=== PATIENT | female | born 1930 | race Caucasian/White ===

== ENCOUNTER 2016-06-15 13:15 | Inpatient (IN) ==
--- NOTE | 2016-06-15 13:54 | Emergency Department Note ---
START Narrative - START START: For this encounter, I have reviewed the resident, SYSTEMS SUPPORT ENGINEER, or PA documentation, treatment plan, and medical decision making; and I have had face to face time with this patient. 85 yo female with history of metastasis presents with concerns of ARF and pain. Pt was seen by onchologist and was noted to have hypotension and bilateral lower extremity edema. pt has history of metastasis which has caused chronic BLE edema. She states she had a history of hypotension with systolic in the 80s to low 100s over the past few months. Patient has an ECG which shows A. fib with RVR without evidence of STEMI. Patient states her lower extremities are edematous but they are significantly improved what they have been in the past. Laboratory testing today shows increasing elevation of her creatinine over the past few months. Patient given Lopressor in the emergency department for A. fib with RVR which improved the heart rate. Patient's blood pressure was tenuous but remained stable. Patient's CODE STATUS was confirmed at DNR [facility]. Admitted to the hospital for evaluation of her renal function, her hypotension and further evaluation of her cancer.
[2016-06-15] MEDS ORDERED: 0.9 % Sodium Chloride 1,000 ML IVC ONE (13:58)
--- NOTE | 2016-06-15 14:20 | Emergency Department Note ---
Disposition Clinical Impression: Metastatic cancer Atrial fibrillation Qualifiers: Atrial fibrillation type: unspecified Qualified Code(s): I48.91 - Unspecified atrial fibrillation Sepsis Qualifiers: Sepsis type: sepsis due to unspecified organism Qualified Code(s): A41.9 - Sepsis, unspecified organism Disposition: Admitted As Inpatient Condition: Serious Time of Disposition: 14:00 General Adult HPI - General Chief complaint: ED General Medical Stated complaint: Low B/P, BLE edema Time Seen by Provider: 06/15/16 13:22 Source: patient, EMS Limitations: no limitations Nursing Notes Reviewed: Yes Vital Signs Reviewed: Yes - History of Present Illness HPI Narrative: Patient is an 85-year-old female presenting to [facility] ED with a chief complaint of hypotension and metastatic cancer. Patient was sent over by Rutledge Elham. She was recently treated with radiation therapy for her metastatic lymphoma. 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 Patient had been admitted to a swing bed at [facility] but family wanted to continue aggressive treatment for her current condition. She was transferred over here for that as well as possible initiation of talking to the family about hospice since her prognosis is very poor. Other medical history significant for prior "leaky valve" and AAA. Her abdominal CT scan at [place] showed some possible necrosis on CT scan of her abdomen pelvis. She was started on ciprofloxacin, Flagyl, cefuroxime. Apparently they had spoken with [facility] oncological surgical services who stated she would not be a surgical candidate. Onset (ago): day(s) Pain Scale: 5 Improves with: nothing Worsens with: nothing Associated symptoms: Reports: weakness. Denies: chest pain, cough, nausea/ vomiting, shortness of breath - Related Data Home Medications Medication Instructions Recorded Confirmed Aspirin Enteric Coated [Aspirin EC] 162 mg PO QPM #0 11/26/14 06/15/16 Atorvastatin [Lipitor] 10 mg PO HS #0 11/26/14 06/15/16 Ferrous Fumarate/Ascorbic Acid 0.5 each PO QPM #0 11/26/14 06/15/16 [Delvis-Sequels 65-25 mg Caplet] Ginkgo Biloba 60 mg PO QAM #0 11/26/14 06/15/16 Gluc Fitzgerald/Chondro Fitzgerald A/Vit C/Mn 2 each PO QAM #0 11/26/14 06/15/16 [Glucosamine Chondroitin Tab] Inulin/Chromium Picolinate [Fiber 2 each PO BID #0 11/26/14 06/15/16 Gummies] Multivit-Min/FA/Lycopen/Lutein 1 each PO DAILY #0 11/26/14 06/15/16 [Centrum Silver Tablet] Nitroglycerin [Nitrostat] 0.4 mg SL Q5M PRN #0 11/26/14 06/15/16 Vitamin B Complex 1 each PO QAM #0 11/26/14 06/15/16 Metoprolol [Lopressor] 25 mg PO BID 06/15/16 06/15/16 Naproxen Sodium [Aleve] 220 mg PO Q12H PRN 06/15/16 06/15/16 Ondansetron ODT [Zofran ODT] 4 mg SL Q4HR PRN 06/15/16 06/15/16 Previous Rx's Medication Instructions Recorded Prochlorperazine Maleate 10 mg PO Q6HR PRN #30 tablet 12/19/14 [Compazine] Ranitidine HCl [Zantac] 150 mg PO Q12H #60 tablet 01/16/15 Magnesium Oxide [Magnesium] 400 mg PO BID #60 tablet 02/14/15 Capecitabine [Xeloda] 1 tab PO BID #60 tablet 06/08/16 Docusate Sodium [Colace] 100 mg PO BID #60 capsule 06/08/16 OxyCODONE/APAP 5/325 [Percocet 1 each PO TID PRN #40 tablet 06/08/16 5/325 MG] Allopurinol [Zyloprim 300 MG] 300 mg PO DAILY #20 tablet 06/10/16 Allergies Allergy/AdvReac Type Severity Reaction Status Date / Time estrogens, conjugated Allergy Swelling Verified 11/26/14 13:23 [From Premarin] of Lip/Tongue/Throat All systems ED: reviewed and negative except as stated. Past Medical History - Past Medical History Attestation: Yes The following information was validated with the patient. Source: patient Medical history: Reports: cancer, hyperlipidemia, hypertension Surgical history: Reports: cataract, cholecystectomy, hysterectomy Psychiatric history: Reports: no psych history DIGITAL LEARNING PLATFORMS MANAGER history: Reports: no DIGITAL LEARNING PLATFORMS MANAGER history - Social History Smoking Status: Never smoker Smokeless Tobacco Status: No Alcohol use: Reports: none Drug use: Reports: none Physical Exam - General Limitations: no limitations General appearance: alert - Head Head exam: atraumatic, normocephalic, normal inspection - Eye Eye exam: Present: normal appearance, PERRL, EOMI - ENT ENT exam: normal exam, normal oropharynx, mucous membranes moist - Neck Neck exam: Present: normal inspection, full ROM, trachea midline - Chest Chest inspection: Present: normal inspection, symmetric chest wall rise - Respiratory Respiratory exam: Present: normal lung sounds bilaterally - Cardiovascular Cardiovascular exam: Present: normal rhythm, tachycardia - Abdominal Exam Abdominal exam: Present: soft, Non-Tender, diminished bowel sounds. Absent: tenderness, distention, guarding, rebound, rigidity - Extremities Exam Extremities exam: Present: pedal edema, other (LLE edema) - Neurological Exam Neurological exam: Present: alert, oriented X3 - Psychiatric Psychiatric exam: Present: flat affect - Skin Skin exam: Present: warm, dry, intact, normal color Course Course Narrative: Patient seen and examined. Sent here for hypotension, sepsis, metastatic cancer. Patient finished up her radiation treatment 1 out of 10 today. Treatment is mainly palliative to try and decrease tumor burden in her abdomen to allow for better drainage of her leg. She does have lymphedema in the left leg. We will assess for possible tumor lysis syndrome. Labs, chest x-ray, IV fluids ordered. - Reevaluation(s) Reevaluation #1: EKG shows atrial fibrillation with RVR. We will give a small dose of Lopressor. Her blood pressure is very soft. Patient states she runs very low. Lab work does not appear to show any signs of tumor lysis syndrome. She will need continued resuscitation as well as IV antibiotics. Palliative care came to the bedside to evaluate patient. Patient is currently DNR CCA. Patient still has mild leukocytosis. Has some elevated creatinine. Patient will also need to continue her radiation treatment since they are pursuing an aggressive approach. I spoke with hospitalist Dr. Yang who has accepted patient for admission. Time: 14:00 Vital Signs Temperature 98.5 F 06/15/16 13:19 Pulse Rate 106 06/15/16 13:19 Respiratory Rate 18 06/15/16 13:19 Blood Pressure 97/63 06/15/16 13:19 O2 Sat by Pulse Oximetry 93 L 06/15/16 13:19 Temperature 0 F L 06/15/16 16:44 Pulse Rate 116 06/15/16 17:55 Respiratory Rate 18 06/15/16 17:12 Blood Pressure 107/71 06/15/16 17:12 O2 Sat by Pulse Oximetry 95 06/15/16 17:12 Oxygen Delivery Oxygen Delivery Room Air Medical Decision Making - Medical Records Medical records reviewed: Yes I reviewed the patient's medical records. - Lab Data Lab results reviewed: Yes I reviewed the patient's lab results. Result diagrams: 06/15/16 14:27 06/15/16 14:27 Lab Results 06/15/16 06/15/16 06/15/16 Range/Units 14:27 14:27 14:27 WBC (4.3-11.1) K/mcL RBC (3.82-4.97) M/mcL Hgb (11.5-15.4) g/dL Hct (35.3-44.9) % MCV (83.0-100.0) fL MCH (28.0-33.3) pg MCHC (31.6-35.5) g/dL RDW (11.5-14.5) % Plt Count (140-400) K/mcL MPV (9.4-12.4) fL Immature Gran % (0-4) % Seg Neutrophils % % Lymphocytes % % Monocytes % % Eosinophils % % Basophils % % Neutrophils # (1.6-8.9) K/mcL Lymphocytes # (0.6-4.6) K/mcL Monocytes # (0.0-1.3) K/mcL Eosinophils # (0.0-0.6) K/mcL Basophils # (0.0-0.2) K/mcL PT 10.7 (9.4-12.1) Seconds INR 1.0 APTT 34.6 (26.0-36.0) Seconds Sodium 136 (136-145) mEq/L Potassium 4.0 (3.5-4.5) mEq/L Chloride 107 (98-109) mEq/L Carbon Dioxide 22 (19-29) mEq/L BUN 31 H (7-20) mg/dL Creatinine 2.05 H (0.57-1.11) mg/dL Est GFR ( Amer) 28 L (> 60) Est GFR (Non-Af Amer) 23 L (> 60) BUN/Creatinine Ratio 15 (6-26) Glucose 86 (70-99) mg/dL Calculated Osmolality 288 (280-300) Lactic Acid (0.5-2.2) mmol/L Uric Acid 4.5 (2.6-6.0) mg/dL Calcium 9.8 D (8.6-10.8) mg/dL Phosphorus 2.9 (2.3-4.7) mg/dL Magnesium 1.2 L (1.6-2.6) mg/dL Total Bilirubin 0.6 (0.2-1.2) mg/dL AST 20 (5-34) Units/L ALT 6 (0-55) Units/L Alkaline Phosphatase 105 (38-126) Units/L Troponin I (0-0.03) ng/mL Serum Total Protein 4.2 L (6.0-8.3) g/dL Albumin 1.8 L (3.5-5.0) g/dL Globulin 2.4 (2.4-3.5) g/dL Albumin/Globulin Ratio 0.8 L (1.1-2.2) Urine Color (Yellow) Urine Clarity (Clear) Urine pH (5.0-8.0) pH Units Ur Specific [place] (1.010-1.025) Urine Protein (Neg-Trace) mg/dL Urine Glucose (UA) (Normal) mg/dL Urine Ketones (Negative) mg/dL Urine Blood (Negative) Urine Nitrite (Negative) Urine Bilirubin (Negative) Urine Urobilinogen (Normal) mg/dL Ur Leukocyte Esterase (Negative) Urine Microscopic RBC (0-3) per hpf Urine Microscopic WBC (0-3) per hpf Ur Squamous Epith Cells (None-Few) per lpf Calcium Oxalate Crystal Urine Bacteria (None-Few) per hpf Hyaline Casts (None-Few) per lpf Urine Yeast (None Seen) per hpf Ur Culture Indicated? (NO) 06/15/16 06/15/16 06/15/16 Range/Units 14:27 14:27 14:27 WBC 15.1 H (4.3-11.1) K/mcL RBC 3.12 L (3.82-4.97) M/mcL Hgb 9.7 L (11.5-15.4) g/dL Hct 30.9 L (35.3-44.9) % MCV 99.0 (83.0-100.0) fL MCH 31.1 (28.0-33.3) pg MCHC 31.4 L (31.6-35.5) g/dL RDW 18.4 H (11.5-14.5) % Plt Count 241 (140-400) K/mcL MPV 11.3 (9.4-12.4) fL Immature Gran % 1.0 (0-4) % Seg Neutrophils % 92.0 % Lymphocytes % 1.3 % Monocytes % 4.0 % Eosinophils % 1.3 % Basophils % 0.4 % Neutrophils # 13.9 H (1.6-8.9) K/mcL Lymphocytes # 0.2 L (0.6-4.6) K/mcL Monocytes # 0.6 (0.0-1.3) K/mcL Eosinophils # 0.2 (0.0-0.6) K/mcL Basophils # 0.1 (0.0-0.2) K/mcL PT (9.4-12.1) Seconds INR APTT (26.0-36.0) Seconds Sodium (136-145) mEq/L Potassium (3.5-4.5) mEq/L Chloride (98-109) mEq/L Carbon Dioxide (19-29) mEq/L BUN (7-20) mg/dL Creatinine (0.57-1.11) mg/dL Est GFR ( Amer) (> 60) Est GFR (Non-Af Amer) (> 60) BUN/Creatinine Ratio (6-26) Glucose (70-99) mg/dL Calculated Osmolality (280-300) Lactic Acid 1.5 (0.5-2.2) mmol/L Uric Acid (2.6-6.0) mg/dL Calcium (8.6-10.8) mg/dL Phosphorus (2.3-4.7) mg/dL Magnesium (1.6-2.6) mg/dL Total Bilirubin (0.2-1.2) mg/dL AST (5-34) Units/L ALT (0-55) Units/L Alkaline Phosphatase (38-126) Units/L Troponin I 0.03 (0-0.03) ng/mL Serum Total Protein (6.0-8.3) g/dL Albumin (3.5-5.0) g/dL Globulin (2.4-3.5) g/dL Albumin/Globulin Ratio (1.1-2.2) Urine Color (Yellow) Urine Clarity (Clear) Urine pH (5.0-8.0) pH Units Ur Specific [place] (1.010-1.025) Urine Protein (Neg-Trace) mg/dL Urine Glucose (UA) (Normal) mg/dL Urine Ketones (Negative) mg/dL Urine Blood (Negative) Urine Nitrite (Negative) Urine Bilirubin (Negative) Urine Urobilinogen (Normal) mg/dL Ur Leukocyte Esterase (Negative) Urine Microscopic RBC (0-3) per hpf Urine Microscopic WBC (0-3) per hpf Ur Squamous Epith Cells (None-Few) per lpf Calcium Oxalate Crystal Urine Bacteria (None-Few) per hpf Hyaline Casts (None-Few) per lpf Urine Yeast (None Seen) per hpf Ur Culture Indicated? (NO) 06/15/16 Range/Units 15:10 WBC (4.3-11.1) K/mcL RBC (3.82-4.97) M/mcL Hgb (11.5-15.4) g/dL Hct (35.3-44.9) % MCV (83.0-100.0) fL MCH (28.0-33.3) pg MCHC (31.6-35.5) g/dL RDW (11.5-14.5) % Plt Count (140-400) K/mcL MPV (9.4-12.4) fL Immature Gran % (0-4) % Seg Neutrophils % % Lymphocytes % % Monocytes % % Eosinophils % % Basophils % % Neutrophils # (1.6-8.9) K/mcL Lymphocytes # (0.6-4.6) K/mcL Monocytes # (0.0-1.3) K/mcL Eosinophils # (0.0-0.6) K/mcL Basophils # (0.0-0.2) K/mcL PT (9.4-12.1) Seconds INR APTT (26.0-36.0) Seconds Sodium (136-145) mEq/L Potassium (3.5-4.5) mEq/L Chloride (98-109) mEq/L Carbon Dioxide (19-29) mEq/L BUN (7-20) mg/dL Creatinine (0.57-1.11) mg/dL Est GFR ( Amer) (> 60) Est GFR (Non-Af Amer) (> 60) BUN/Creatinine Ratio (6-26) Glucose (70-99) mg/dL Calculated Osmolality (280-300) Lactic Acid (0.5-2.2) mmol/L Uric Acid (2.6-6.0) mg/dL Calcium (8.6-10.8) mg/dL Phosphorus (2.3-4.7) mg/dL Magnesium (1.6-2.6) mg/dL Total Bilirubin (0.2-1.2) mg/dL AST (5-34) Units/L ALT (0-55) Units/L Alkaline Phosphatase (38-126) Units/L Troponin I (0-0.03) ng/mL Serum Total Protein (6.0-8.3) g/dL Albumin (3.5-5.0) g/dL Globulin (2.4-3.5) g/dL Albumin/Globulin Ratio (1.1-2.2) Urine Color Yellow (Yellow) Urine Clarity Turbid A (Clear) Urine pH 5.0 (5.0-8.0) pH Units Ur Specific [place] 1.016 (1.010-1.025) Urine Protein 30 H (Neg-Trace) mg/dL Urine Glucose (UA) Normal (Normal) mg/dL Urine Ketones Negative (Negative) mg/dL Urine Blood Moderate H (Negative) Urine Nitrite Positive A (Negative) Urine Bilirubin Negative (Negative) Urine Urobilinogen Normal (Normal) mg/dL Ur Leukocyte Esterase Large H (Negative) Urine Microscopic RBC 15-30 H (0-3) per hpf Urine Microscopic WBC TNTC H (0-3) per hpf Ur Squamous Epith Cells Many H (None-Few) per lpf Calcium Oxalate Crystal Present Urine Bacteria Few (None-Few) per hpf Hyaline Casts None Seen (None-Few) per lpf Urine Yeast Few H (None Seen) per hpf Ur Culture Indicated? YES A (NO) - Radiology Data Radiology results reviewed: Yes I reviewed the patient's radiology results. Chest X-Ray 06/15/16 14:22 IMPRESSION: Findings suggest congestive heart failure D/ / Gokul Begum MD / Gokul Begum MD Interpreting Provider: Gokul Begum MD - EKG Data EKG #1 EKG attestation: Yes I reviewed and interpreted this EKG. EKG results narrative: EKG shows a fib with rvr with rate [address] elevation or depression. Rate: tachycardia Rhythm: A.Fib
[2016-06-15] MEDS ORDERED: *HR* Metoprolol 5 MG/5 ML VIAL IVP ONE (14:38)
[2016-06-15 14:47] LABS: Magnesium 1.2 mg/dL (1.6-2.6); Phosphorous 2.9 mg/dL (2.3-4.7); Prothrombin Time 10.7 Seconds (9.4-12.1)
[2016-06-15 14:50] LABS: Activated Partial Thrombo Time 34.6 Seconds (26.0-36.0); Albumin/Globulin Ratio 0.8 (1.1-2.2); Bilirubin,Total 0.6 mg/dL (0.2-1.2); Calcium 9.8 mg/dL (8.6-10.8); Globulin 2.4 g/dL (2.4-3.5); Total Protein 4.2 g/dL (6.0-8.3); Uric Acid 4.5 mg/dL (2.6-6.0)
[2016-06-15 14:52] LABS: Albumin 1.8 g/dL (3.5-5.0)
--- NOTE | 2016-06-15 15:03 | Palliative - Consult Note ---
Date of Encounter: 06/15/16 Time of Encounter: 14:58 - Assessment and Plan (1) Pain Current Visit: Yes Status: Acute Assessment and plan: Described as a deep gnawing type pain is primarily in her left leg is felt to be secondary to the tumor mass pressing on her lymphatics that are also causing her lymphedema. Patient will be admitted she will be on a pain regimen as determined by the hospitalist team we will continue to consult. The main continuing Percocet at current dose and adjusting as needed. (2) Goals of care, counseling/discussion Current Visit: Yes Status: Acute Assessment and plan: The patient discussed with Dr. Allen from radiation oncology her CODE STATUS preferences he is DNR CCA. I believe that this is appropriate given her desire for aggressive therapy. Her goals are to undergo the radiation and get what ever he is available to her through the cancer center. Discussed further with her and will continue to do so what the backup plan is if that does not work. (3) Colon cancer Current Visit: No Status: Acute Assessment and plan: Getting radiation therapy at this time,, A she is getting purely palliative therapy at this time radiation therapy as directed primarily at her lymphoma. The colon cancer is not being treated aggressively at this time. Qualifiers: Colon location: sigmoid Qualified Code(s): C18.7 - Malignant neoplasm of sigmoid colon (4) Lymphedema of left lower extremity Current Visit: No Status: Acute Assessment and plan: Advised by oncology to keep extremities elevated. She is getting radiation therapy and got her first treatment today for this. Palliative-CN HPI - Data of Consult Patient: new to practice Primary Care Provider: Storm Woo Jr, MD - Consult Narrative Palliative Care/Comfort Measures: Palliative care Reason for consult: Goals of care History of present illness: Ms. Muller is a 85 year old female With a history of recurrent B-cell lymphoma that had been treated apparently relatively successfully with chemotherapy but has now recurred, well as a new onset weight: Adenocarcinoma differentiated significant ring. Her sigmoid colon cancer is wrapping around the ureter and is considered unresectable. The patient has received aggressive chemotherapy in the past but this is not continuing at this time. The patient is reviewed receiving radiation therapy to decrease the tumor mass from the B-cell lymphoma that is pressing on the in the pelvis. It is also felt that the radiation therapy may be beneficial to the lung cancer as well. The patient is status post colostomy done last month at [facility]. This time the pain seems to be primarily related to the swelling in her legs and she describes a deep achy pain particularly in the left leg more than the right worse with movement and better with rest in the medications do seem to help it. This is seen to be associated with any other signs or symptoms and is already noted the pain medication does seem to help. The patient was over getting her radiation therapy today she was noted to have very low blood pressure she was sent to the emergency department for further aggressive or before this patient will be admitted and then her up by oncology, As well as radiation oncology. Palliative care was with his requested by radiation oncology to be consulted regarding goals of care and to establish a relationship with the patient in case she does not respond well to the chemotherapy and radiation therapy which is purely palliative at this point in any case. Echo plan at that point in time would be hospice. At this point in time the patient is not ready for true hospice discussion but she does understand that there is a backup plan for the radiation chemotherapy. CC: Low blood pressure, leg swelling Past Med Surg Social Fam HX - Past Medical History Medical history: cancer, hyperlipidemia, hypertension Psychiatric history: no psych history - Past Surgical History Surgical History: cataract, cholecystectomy, hysterectomy - Social History Smoking Status: Never smoker Smokeless Tobacco Status: No Alcohol use: none Drug use: none Medications and Allergies Aspirin 1 tab PO DAILY 11/26/14 [History] Atorvastatin 1 tab PO DAILY 11/26/14 [History] B Complex 1 tab PO DAILY 11/26/14 [History] Centrum Silver Tablet 1 tab PO DAILY 11/26/14 [History] Ferrous Sulfate 1 tab PO DAILY 11/26/14 [History] Fiber Gummies 2 tab PO BID 11/26/14 [History] Ginkgo Biloba 1 tab PO DAILY 11/26/14 [History] Glucosamine Chondroitin Cap 1 cap PO BID 11/26/14 [History] Nitroglycerin 1 tab SL Q5-10MIN PRN 11/26/14 [History] Prochlorperazine Maleate [Compazine] 10 mg PO Q6HR PRN #30 tablet 12/19/14 [Rx] Ranitidine HCl [Zantac] 150 mg PO Q12H #60 tablet 01/16/15 [Rx] Magnesium Oxide [Magnesium] 400 mg PO BID #60 tablet 02/14/15 [Rx] Ondansetron ODT [Zofran ODT] 4 mg SL Q4HR #60 tab.rapdis 12/24/15 [Rx] Capecitabine [Xeloda] 1 tab PO BID #60 tablet 06/08/16 [Rx] Docusate Sodium [Colace] 100 mg PO BID #60 capsule 06/08/16 [Rx] OxyCODONE/APAP 5/325 [Percocet 5/325 MG] 1 each PO TID PRN #40 tablet 06/08/16 [ Rx] Allopurinol [Zyloprim 300 MG] 300 mg PO DAILY #20 tablet 06/10/16 [Rx] Clotrimazole 1% CRM [Lotrimin 1%] 1 appl TP BID tube 06/15/16 [Rx] Multivit/Ca/Min/Fe/FA [Thera M Plus] 1 tab PO DAILY tablet 06/15/16 [Rx] Allergies estrogens, conjugated [From Premarin] Allergy (Verified 11/26/14 13:23) Swelling of Lip/Tongue/Throat - Constitutional Constitutional ROS PAL: decreased appetite - EENT Eyes: no discharge, no pain Ears: no ear discharge, no ear pain Ears, nose, mouth, throat: no facial pain, no hoarseness, no lip swelling, no mouth pain (But mouth is dry) - Cardiovascular Cardiovascular ROS: no chest pain, no chest pain at rest - Respiratory Respiratory: no cough, no dyspnea - Gastrointestinal Gastrointestinal: no diarrhea (Has colostomy), no nausea, no vomiting - Genitourinary Palliative ROS female: no urinary frequency, no urinary hesitancy - Musculoskeletal Musculoskeletal ROS IM: arthralgias (Pain in legs see history of present illness ) - Integumentary ROS Integumentary: skin pain (On left buttocks) - Neurological Neurological ROS: weakness (Generalized), no frequent falls - Psychiatric Psychiatric general PM: no depression, no difficulty concentrating, no homicidal ideation, no suicidal ideation - Endocrine Endocrine IM: other (O diabetes or thyroid problems noted) Palliative Care-Exam - Constitutional Vitals: Temp Pulse Resp BP Pulse Ox 98.5 F 110 18 86/56 96 06/15/16 13:19 06/15/16 14:48 06/15/16 14:48 06/15/16 14:48 03/14/17 14:48 Internal Medicine - CN: Reslt - Labs CBC & Chem 7: 06/15/16 14:27 Labs: BMP 06/15/16 14:27 Sodium 136 Potassium 4.0 Chloride 107 Carbon Dioxide 22 BUN 31 H Creatinine 2.05 H Glucose 86 Calcium 9.8 D Liver Function 06/15/16 Range/Units 14:27 Total Bilirubin 0.6 (0.2-1.2) mg/dL AST 20 (5-34) Units/L ALT 6 (0-55) Units/L Alkaline Phosphatase 105 (38-126) Units/L Albumin 1.8 L (3.5-5.0) g/dL - ABG Interpretation ABG results: PT/INR, D-dimer PT 10.7 Seconds (9.4-12.1) 06/15/16 14:27 - Impressions Impressions Chest X-Ray 06/15/16 14:22 IMPRESSION: Findings suggest congestive heart failure D/ / Gokul Begum MD / Gokul Begum MD Interpreting Provider: Gokul Begum MD Consult Discharge Plan - Plan Referrals: Storm Woo Jr, MD [Primary Care Provider] - Palliative Quality Palliative Quality: Screen for Code Status: Yes, Screen for Goals of Care: Yes, Screen for Pain: Yes, If Pain Regimen Started, Initiate Bowel Regimen: Yes, Screen for Nausea/Vomitting: Yes
[2016-06-15 15:28] LABS: Bilirubin,Urine Negative (Negative); Blood,Urine Moderate (Negative); Clarity,Urine Turbid (Clear); Color,Urine Yellow (Yellow); Glucose,Urine (UA) Normal (Normal); Ketones,Urine Negative (Negative); Leukocyte Esterase,Urine Large (Negative); Nitrite,Urine Positive (Negative); Protein,Urine 30 mg/dL (Neg-Trace); Specific Gravity,Urine 1.016 (1.010-1.025); Urobilinogen,Urine Normal (Normal)
[2016-06-15 15:31] LABS: Bacteria,Urine Few per hpf (None-Few); Hyaline Casts,Urine None Seen per lpf (None-Few); Squamous Epithelial Cell,Urine Many per lpf (None-Few); WBC,Urine TNTC per hpf (0-3)
[2016-06-15 15:45] LABS: Calcium Oxalate Crystals,Urine Present; RBC,Urine 15-30 per hpf (0-3); Yeast,Urine Few per hpf (None Seen)
--- NOTE | 2016-06-15 16:21 | Internal Med History&Physical ---
Date of Encounter: 06/15/16 Time of Encounter: 16:19 Assessment and Plan (1) Hypotension Current visit: Yes Status: Acute Unclear etiology, but concerning for possible sepsis given her intraabdominal abnormalities seen on CT. Also concern for intravascular depletion given her markedly low albumin in the setting of advanced cancer. Mucous membranes dry on exam. - IV fluids - Treat for possible sepsis with intraabdominal source with IV Vanc/Zosyn - Monitor carefully on 2N Qualifiers: Hypotension type: unspecified hypotension type Qualified Code(s): I95.9 - Hypotension, unspecified (2) Acute renal failure Current visit: Yes Status: Acute Unclear etiology but likely volume depletion (prerenal etiology) in the setting of intravascular depletion. Has left ureteral obstruction but would not fully explain acute elevation of creatinine. - Volume resuscitation - Monitor Cr - Check urine lytes, protein, etc. - Consider nephrology consult in AM if creatinine doesn't improve Qualifiers: Acute renal failure type: unspecified Qualified Code(s): N17.9 - Acute kidney failure, unspecified (3) Anemia Current visit: No Status: Acute Qualifiers: Anemia type: unspecified type Qualified Code(s): D64.9 - Anemia, unspecified (4) Atrial fibrillation Current visit: Yes Status: Acute In RVR. Will volume resuscitate and see how heart rate responds. - IV metoprolol PRN for markedly elevated heart rate, but will see how it responds to IV fluids first (want to limit rate control meds in patient with volume depletion/hypotension/possible sepsis) - Receiving SQ lovenox at [place], will continue Qualifiers: Atrial fibrillation type: unspecified Qualified Code(s): I48.91 - Unspecified atrial fibrillation (5) Colon cancer Current visit: No Status: Acute Managed by [facility], Dr. Centeno. - Oncology consulted for assistance with goals of care Qualifiers: Colon location: sigmoid Qualified Code(s): C18.7 - Malignant neoplasm of sigmoid colon Internal Medicine - H&P: HPI Chief complaint: Left lower extremity pain, hypotension Admitted From: Emergency Dept Plans for Post Hospital Care: Home History of present illness: Ms. Muller is a 85 year old female with complicated medical history including colon cancer, lymphoma and newly diagnosed atrial fibrillation who presented to the ER from radiation oncology today because of hypotension. She has been admitted at [facility] since 06/12/2016 and was being treated for hypercalcemia, hypotension and possible necrosis of the tumor in her abdomen in the setting of palliative radiation. She states that she is having left lower extremity pain upon my evaluation of her in the ER, but she notes that this is a chronic issue for her. On admission to [place] on 06/12 her calcium was 12.9 with albumin 2 ( Corrected calcium 14.5), and she was given IV fluids and zometa with improvement of Ca to 9.8 today (corrected 11.5). She had a CT of the abdomen and pelvis 06/14 which showed area concerning for possible focal necrosis of her tumor, and cipro/flagyl was initiated. She has followed with [facility] and was not felt to be a surgical candidate. She follows with Dr. Centeno at [facility], and his notes indicate that all further therapy is palliative in nature , and she is no longer a candidate for chemotherapy, which is why she is currently undergoing radiation therapy. Her blood pressure has been running low since admission to [place], 70s-90s/40s-50s. She states that she is very thirsty. She denies fever or chills. She has no chest pain or shortness of breath. Palliative care was consulted and evaluated the patient in the ER. She is DNR- CCA but does want aggressive interventions otherwise. Past Med Surg Social Fam HX - Past Medical History Medical history: atrial fibrillation (New diagnosis), cancer (Colon cancer, lymphoma), hyperlipidemia, hypertension Psychiatric history: no psych history - Past Surgical History Surgical History: cataract, cholecystectomy, hysterectomy - Social History Smoking Status: Never smoker Smokeless Tobacco Status: No Alcohol use: none Drug use: none Additional social history: Lives at home, sons stay with her Internal Medicine - H&P: Meds Aspirin Enteric Coated [Aspirin EC] 162 mg PO QPM #0 11/26/14 [History] Atorvastatin [Lipitor] 10 mg PO HS #0 11/26/14 [History] Ferrous Fumarate/Ascorbic Acid [Delvis-Sequels 65-25 mg Caplet] 0.5 each PO QPM # 0 11/26/14 [History] Ginkgo Biloba 60 mg PO QAM #0 11/26/14 [History] Gluc Fitzgerald/Chondro Fitzgerald A/Vit C/Mn [Glucosamine Chondroitin Tab] 2 each PO QAM #0 [History] Inulin/Chromium Picolinate [Fiber Gummies] 2 each PO BID #0 11/26/14 [History] Multivit-Min/FA/Lycopen/Lutein [Centrum Silver Tablet] 1 each PO DAILY #0 11/26 [History] Nitroglycerin [Nitrostat] 0.4 mg SL Q5M PRN #0 11/26/14 [History] Vitamin B Complex 1 each PO QAM #0 11/26/14 [History] Prochlorperazine Maleate [Compazine] 10 mg PO Q6HR PRN #30 tablet 12/19/14 [Rx] Ranitidine HCl [Zantac] 150 mg PO Q12H #60 tablet 01/16/15 [Rx] Magnesium Oxide [Magnesium] 400 mg PO BID #60 tablet 02/14/15 [Rx] Capecitabine [Xeloda] 1 tab PO BID #60 tablet 06/08/16 [Rx] Docusate Sodium [Colace] 100 mg PO BID #60 capsule 06/08/16 [Rx] OxyCODONE/APAP 5/325 [Percocet 5/325 MG] 1 each PO TID PRN #40 tablet 06/08/16 [ Rx] Allopurinol [Zyloprim 300 MG] 300 mg PO DAILY #20 tablet 06/10/16 [Rx] Metoprolol [Lopressor] 25 mg PO BID 06/15/16 [History] Naproxen Sodium [Aleve] 220 mg PO Q12H PRN 06/15/16 [History] Ondansetron ODT [Zofran ODT] 4 mg SL Q4HR PRN 06/15/16 [History] Allergies estrogens, conjugated [From Premarin] Allergy (Verified 11/26/14 13:23) Swelling of Lip/Tongue/Throat All Systems PM: A 10-system review of systems was performed and is negative for pertinent findings except as documented above in the HPI. - Constitutional Vitals: Temp Pulse Resp BP Pulse Ox 98.5 F 120 18 89/64 96 06/15/16 13:19 06/15/16 15:48 06/15/16 15:48 06/15/16 15:48 06/15/16 15:48 General appearance: Present: A&O X 3 - Head Head exam: Present: atraumatic - Eye Eye exam: Present: EOMI, sclera anicteric - ENT ENT exam: Present: mucous membranes moist - Neck Neck exam general surgery: Present: supple - Respiratory Respiratory exam: Present: CTAB - Cardiovascular Cardiovascular exam: Present: irregular rhythm, tachycardia. Absent: diastolic murmur, gallop, systolic murmur - GI/Abdominal GI/Abdominal exam: Present: normal bowel sounds, soft, tenderness. Absent: distended Additional comments: LLQ tenderness - Extremities Exam Extremities exam: Present: pedal edema Additional comments: 3-4+ edema LLE, 2+ edema RLE - Neurological Exam Neurological exam: Present: no focal deficits - Skin Skin exam: Absent: rash Internal Med - H&P Results - Labs CBC & Chem 7: 06/15/16 14:27 06/15/16 14:27
[2016-06-15] MEDS ORDERED: Naloxone 0.4 MG/ML INJ IVP PRN (16:32)
[2016-06-15] MEDS ORDERED: Ondansetron ODT 4 MG TAB.RAPDIS SL PRN (16:32)
[2016-06-15 16:49] LABS: Basophils # 0.1 K/mcL (0.0-0.2); Basophils % 0.4 %; Eosinophils # 0.2 K/mcL (0.0-0.6); Eosinophils % 1.3 %; Hematocrit 30.9 % (35.3-44.9); Hemoglobin 9.7 g/dL (11.5-15.4); Lymphocytes # 0.2 K/mcL (0.6-4.6); Lymphocytes % 1.3 %; Mean Corpuscular HGB Conc 31.4 g/dL (31.6-35.5); Mean Corpuscular Hemoglobin 31.1 pg (28.0-33.3); Mean Platelet Volume 11.3 fL (9.4-12.4); Monocytes # 0.6 K/mcL (0.0-1.3); Neutrophils # 13.9 K/mcL (1.6-8.9); Platelet Count 241 K/mcL (140-400); Red Blood Count 3.12 M/mcL (3.82-4.97); Red Cell Distribution Width 18.4 % (11.5-14.5)
[2016-06-15] MEDS ORDERED: Vancomycin 1,250 MG in D5% in Water 250 ML IVPB SCH (17:00)
[2016-06-15] MEDS ORDERED: Vancomycin (wt based) 1,000 MG VIAL IVPB SCH (17:00)
[2016-06-15] MEDS: 0.9 % Sodium Chloride 1,000 ML IVC SCH (17:23)
[2016-06-15] MEDS: Piperacillin/Tazobactam 3.375 GM in D5% in Water (Mini-Bag+) 100 ML IVPB SCH (17:24)
[2016-06-15] MEDS ORDERED: Magnesium Sulfate 2 GM in D5% in Water 100 ML IVPB ONE (20:11)
[2016-06-15] MEDS: Famotidine 20 MG TABLET PO SCH (20:54)
[2016-06-15] MEDS: *HR* Enoxaparin 100 MG/ML SYRINGE SQ SCH (20:54)
[2016-06-16] MEDS: Piperacillin/Tazobactam 3.375 GM in D5% in Water (Mini-Bag+) 100 ML IVPB SCH ×4 (00:12→23:59)
[2016-06-16] MEDS: 0.9 % Sodium Chloride 1,000 ML IVC SCH ×3 (06:51→14:52)
[2016-06-16 07:03] LABS: Basophils # 0.1 K/mcL (0.0-0.2); Basophils % 0.5 %; Eosinophils # 0.3 K/mcL (0.0-0.6); Eosinophils % 2.8 %; Hematocrit 27.5 % (35.3-44.9); Hemoglobin 8.9 g/dL (11.5-15.4); Immature Granulocytes % 0.7 % (0-4); Lymphocytes # 0.3 K/mcL (0.6-4.6); Lymphocytes % 2.4 %; Mean Corpuscular HGB Conc 32.4 g/dL (31.6-35.5); Mean Corpuscular Hemoglobin 31.6 pg (28.0-33.3); Mean Corpuscular Volume 97.5 fL (83.0-100.0); Mean Platelet Volume 11.2 fL (9.4-12.4); Monocytes # 0.5 K/mcL (0.0-1.3); Monocytes % 4.3 %; Platelet Count 235 K/mcL (140-400); Red Blood Count 2.82 M/mcL (3.82-4.97); Red Cell Distribution Width 18.1 % (11.5-14.5); Segmented Neutrophils % 89.3 %
[2016-06-16 07:17] LABS: Albumin 1.5 g/dL (3.5-5.0); Albumin/Globulin Ratio 0.7 (1.1-2.2); Bilirubin,Total 0.6 mg/dL (0.2-1.2); Globulin 2.1 g/dL (2.4-3.5); Potassium 3.8 mEq/L (3.5-4.5); Total Protein 3.6 g/dL (6.0-8.3)
[2016-06-16] MEDS ORDERED: Aminoglycoside Consult 1 EACH MC ONE (07:47)
[2016-06-16] MEDS: Famotidine 20 MG TABLET PO SCH (08:40)
[2016-06-16] MEDS: Multivit/Ca/Min/Fe/FA 1 TAB TABLET PO SCH (08:43)
[2016-06-16] MEDS: CHONDRO SU A PO SCH (08:44)
[2016-06-16] MEDS: GLUC SU PO SCH (08:44)
[2016-06-16] MEDS: [UNRECOGNIZED DRUG - OTHER] PO SCH (08:44)
[2016-06-16] MEDS: VIT C PO SCH (08:44)
[2016-06-16] MEDS: (Ginkgo Biloba [Ginkgo Biloba] 60 MG) PO SCH (08:46)
--- NOTE | 2016-06-16 08:46 | Oncology Inp Progress Note ---
Date of Encounter: 06/15/16 Time of Encounter: 18:00 (1) DLBCL (diffuse large B cell lymphoma) Current Visit: Yes Status: Acute Assessment and plan: She has large pelvic lymphadenopathy causing left lower activity edema. Also significant retroperitoneal adenopathy. 10 days of palliative radiation planned and she got the first dose of 2016 We will watch for tumor lysis syndrome. I had a long discussion with her. She wants to continue palliative radiation and she will be getting that an inpatient 2. Colon cancer 35 cm from the anal verge. Radiation should help that as well. Given that she has 2 cancers the treatment currently for the colon is only palliative radiation. Overall her general condition has declined. But per her wishes will continue with the palliative radiation (2) Lymphedema of left lower extremity Current Visit: No Status: Acute Assessment and plan: This is mostly from lymph nodes in the retroperitoneum and left pelvis causing obstruction of the lymphatic and venous flow. Palliative radiation should help some of the edema may not completely reverse it Oncology: Subj Interval history: Recurrent non-Hodgkin's lymphoma. This time its diffuse large B-cell lymphoma with a large lymph node in the left pelvis. PET scan from [facility] showed extensive adenopathy in the retroperitoneum. 2. Also sigmoid colon cancer about 35 cm from the anal verge. The decision is to do palliative radiation for the lymphoma and also to the colon. Had a long discussion with Dr. Allen. Given the palliative radiation plan no role for concurrent chemotherapy with Xeloda for colon cancer 3. Hypercalcemia calcium around 13 he improved after dose of bisphosphonate. Current calcium is normal. 4.She is at risk for tumor lysis syndrome. Will watch phosphorus and urine output closely - Constitutional Vitals: Vital Signs Temp Pulse Resp BP Pulse Ox 06/16/16 08:37 97.9 F 128 16 91/63 96 06/16/16 04:40 110 06/16/16 03:15 98.5 F 98 17 90/58 95 06/16/16 01:21 98.2 F 109 18 91/53 94 L 06/16/16 00:00 98 06/15/16 20:30 112 06/15/16 19:11 98.5 F 117 18 95/62 97 06/15/16 17:55 116 06/15/16 17:12 121 18 107/71 95 06/15/16 16:44 0 F L 18 104/63 Intake and Output 06/15/16 06/16/16 06/16/16 23:59 07:59 15:59 Intake Total 1340 / 1340 1000 / 1000 Output Total 1000 / 1000 Balance 1340 / 1340 0 / 0 Intake: IV Fluids 1100 / 1100 1000 / 1000 0.9 % Sodium Chloride 1, 1000 / 1000 1000 / 1000 000 ML @ 125 mls/hr IVC . Q8H VELMA Rx#:[id number] Zosyn 3.375 GM In 100 / 100 Dextrose 5% (Minibag+) 100 ML 100 ML @ 25 mls/hr IVPB Q8H VELMA Rx#: [id number] Oral 240 / 240 Output: Catheter 1000 / 1000 Other: Meal Dinner Percent of Meal Consumed 15% Weight 87.3 kg Patient Weight 06/16/16 23:59 Weight 87.3 kg Exam: GENERAL: Lethargic but easily arousable. Able to answer questions appropriately Mental Status: Affect appropriate for circumstances HEENT: Sclerae anicteric. No mucositis or thrush. No other oral or pharyngeal lesions or erythema. Skin: No rashes or petechiae. No evidence of skin malignancy Lymph nodes: No cervical, supraclavicular, axillary, or inguinal adenopathy. Lungs: Clear to auscultation and percussion bilaterally. Cardiovascular: Regular rate and rhythm. No gallops, murmurs, or rubs. Abdomen: Soft, nontender; no organomegaly or masses palpable. Extremities: 3+ edema. More on the left side No calf swelling or tenderness. No joint deformity. Neurologic: Alert, cranial nerves II-XII intact; generalized weakness but no focal deficit Oncology: Obj Data - Labs CBC & Chem 7: 06/16/16 06:15 06/16/16 06:15 Labs: Laboratory Results - last 24 hr 06/16/16 06/16/16 06:15 06:15 WBC 12.3 H RBC 2.82 L Hgb 8.9 L Hct 27.5 L MCV 97.5 MCH 31.6 MCHC 32.4 RDW 18.1 H Plt Count 235 MPV 11.2 Immature Gran % 0.7 Seg Neutrophils % 89.3 Lymphocytes % 2.4 Monocytes % 4.3 Eosinophils % 2.8 Basophils % 0.5 Neutrophils # 11.0 H Lymphocytes # 0.3 L Monocytes # 0.5 Eosinophils # 0.3 Basophils # 0.1 Sodium 137 Potassium 3.8 Chloride 109 Carbon Dioxide 21 BUN 27 H Creatinine 1.77 H Est GFR ( Amer) 33 L Est GFR (Non-Af Amer) 27 L BUN/Creatinine Ratio 15 Glucose 84 Calculated Osmolality 288 Calcium 9.0 Total Bilirubin 0.6 AST 22 ALT 6 Alkaline Phosphatase 88 Serum Total Protein 3.6 L Albumin 1.5 L Globulin 2.1 L Albumin/Globulin Ratio 0.7 L - ABG Interpretation ABG results: PT/INR, D-dimer PT 10.7 Seconds (9.4-12.1) 06/15/16 14:27 Consult Discharge Plan - Plan Referrals: Storm Woo Jr, MD [Primary Care Provider] -
--- NOTE | 2016-06-16 09:01 | Electrocardiograph Report ---
[address] [place] [address] Test Date: 2016-06-15 Pat Name: Citlali Muller Department: 103 Room: 2N15 Gender: F Radio Operator: : 1930 Requested By: Casi Ware Order Number: [id number] Reading MD: Nicole Poole Measurements Intervals [place] Rate: 107 P: TN: 0 QRS: -59 QRSD: 109 T: 100 QT: 295 QTc: 358 Interpretive Statements ATRIAL FIBRILLATION LOW QRS VOLTAGE POSSIBLE ANTERIOR MYOCARDIAL INFARCTION, PROBABLY OLD INFERIOR MYOCARDIAL INFARCTION, PROBABLY OLD Electronically Signed On 06-16-2016 8:59:37 EDT by Nicole Poole
--- NOTE | 2016-06-16 09:32 | Palliative Progress Note ---
Date of Encounter: 06/16/16 Time of Encounter: 07:50 - Assessment and plan (1) Pain Current Visit: Yes Status: Acute Assessment and plan: Under control at this time continue to watch (2) Goals of care, counseling/discussion Current Visit: Yes Status: Acute Assessment and plan: The patient is DNR CCA, goals of care are for the patient to return back to the [place] swing bed that she was occupying for further rehabilitation. The goal is for her to be old ambulate independently and then return home. At this point the patient does understand that this treatment is palliative in nature. It is beginning gone on her exactly what that means we are helping her to understand that part. This time she is not interested in hospice nor does it seem to be appropriate for her given her current goals. She may change radically with depending on how well the palliative radiation does. (3) Colon cancer Current Visit: No Status: Acute Assessment and plan: Currently getting radiation only. Qualifiers: Colon location: sigmoid Qualified Code(s): C18.7 - Malignant neoplasm of sigmoid colon (4) Lymphedema of left lower extremity Current Visit: No Status: Acute Assessment and plan: Per discussion with Dr. Allen patient will get Cage treatments one per day for total of 10 days. She is now on treatment #2 this is scheduled for sometime around 3:00 this afternoon. - Time Spent With Patient Total time spent is greater than 50% in coordination of care (as documented) at patient's floor/unit and/or counseling patient: - Subjective Interval history: The patient is thirsty this morning and states that she is trying to eat. sHe is hopeful about the radiation therapy. I did go over with her that this is palliative in nature and what that meant. He has no complaints of pain this morning. - Constitutional Vitals: Abnormal lab results WBC 12.3 K/mcL (4.3-11.1) H 06/16/16 06:15 RBC 2.82 M/mcL (3.82-4.97) L 06/16/16 06:15 Hgb 8.9 g/dL (11.5-15.4) L 06/16/16 06:15 Hct 27.5 % (35.3-44.9) L 06/16/16 06:15 RDW 18.1 % (11.5-14.5) H 06/16/16 06:15 Neutrophils # 11.0 K/mcL (1.6-8.9) H 06/16/16 06:15 Lymphocytes # 0.3 K/mcL (0.6-4.6) L 06/16/16 06:15 BUN 27 mg/dL (7-20) H 06/16/16 06:15 Creatinine 1.77 mg/dL (0.57-1.11) H 06/16/16 06:15 Est GFR ( Amer) 33 (> 60) L 06/16/16 06:15 Est GFR (Non-Af Amer) 27 (> 60) L 06/16/16 06:15 Magnesium 1.2 mg/dL (1.6-2.6) L 06/15/16 14:27 Serum Total Protein 3.6 g/dL (6.0-8.3) L 06/16/16 06:15 Albumin 1.5 g/dL (3.5-5.0) L 06/16/16 06:15 Globulin 2.1 g/dL (2.4-3.5) L 06/16/16 06:15 Albumin/Globulin Ratio 0.7 (1.1-2.2) L 06/16/16 06:15 Urine Clarity Turbid (Clear) A 06/15/16 15:10 Urine Protein 30 mg/dL (Neg-Trace) H 06/15/16 15:10 Urine Blood Moderate (Negative) H 06/15/16 15:10 Urine Nitrite Positive (Negative) A 06/15/16 15:10 Ur Leukocyte Esterase Large (Negative) H 06/15/16 15:10 Urine Microscopic RBC 15-30 per hpf (0-3) H 06/15/16 15:10 Urine Microscopic WBC TNTC per hpf (0-3) H 06/15/16 15:10 Ur Squamous Epith Cells Many per lpf (None-Few) H 06/15/16 15:10 Urine Yeast Few per hpf (None Seen) H 06/15/16 15:10 Ur Culture Indicated? YES (NO) A 06/15/16 15:10 General appearance: Present: no acute distress - Head Head exam: Present: atraumatic, normal inspection - Eye Eye exam: Present: normal appearance - ENT ENT exam: Present: mucous membranes dry - Respiratory Respiratory exam: Present: decreased breath sounds - Cardiovascular Cardiovascular exam: Present: irregular rhythm - GI/Abdominal GI/Abdominal exam: Present: hypoactive bowel sounds, soft. Absent: tenderness - Extremities Exam Extremities exam: Present: pedal edema, tenderness (Somewhat). Absent: normal inspection - Neurological Exam Neurological exam: Present: alert, oriented X3 - Psychiatric Psychiatric exam: Present: normal affect, normal mood. Absent: agitated, anxious - Skin Skin exam: Present: dry, warm Palliative Quality Palliative Quality: Screen for Code Status: Yes, Screen for Goals of Care: Yes, Screen for Pain: Yes, If Pain Regimen Started, Initiate Bowel Regimen: Yes, Screen for Nausea/Vomitting: Yes - Labs CBC & Chem 7: 06/16/16 06:15 06/16/16 06:15 Labs: Laboratory Results - last 24 hr 06/16/16 06/16/16 06:15 06:15 WBC 12.3 H RBC 2.82 L Hgb 8.9 L Hct 27.5 L MCV 97.5 MCH 31.6 MCHC 32.4 RDW 18.1 H Plt Count 235 MPV 11.2 Immature Gran % 0.7 Seg Neutrophils % 89.3 Lymphocytes % 2.4 Monocytes % 4.3 Eosinophils % 2.8 Basophils % 0.5 Neutrophils # 11.0 H Lymphocytes # 0.3 L Monocytes # 0.5 Eosinophils # 0.3 Basophils # 0.1 Sodium 137 Potassium 3.8 Chloride 109 Carbon Dioxide 21 BUN 27 H Creatinine 1.77 H Est GFR ( Amer) 33 L Est GFR (Non-Af Amer) 27 L BUN/Creatinine Ratio 15 Glucose 84 Calculated Osmolality 288 Calcium 9.0 Total Bilirubin 0.6 AST 22 ALT 6 Alkaline Phosphatase 88 Serum Total Protein 3.6 L Albumin 1.5 L Globulin 2.1 L Albumin/Globulin Ratio 0.7 L - ABG Interpretation ABG results: PT/INR, D-dimer PT 10.7 Seconds (9.4-12.1) 06/15/16 14:27 Consult Discharge Plan - Plan Referrals: Storm Woo Jr, MD [Primary Care Provider] -
--- NOTE | 2016-06-16 12:26 | Internal Med Progress Note ---
Date of Encounter: 06/16/16 Time of Encounter: 12:24 - Assessment and plan (1) Hypotension Current Visit: Yes Status: Acute Assessment and plan: could be related to underlying infected lymphadenopathy in abdominal/pelvic area. Reviewed previous CT scans of her abdomen since April 2016 and patient has had similar findings of possible abscess with areas of gas in the pelvic area and repeat CT abdomen from 2 days back showed some improvement with extensive subcutaneous infiltration in the lower abdominal area. Reviewed previous records and patient underwent aspiration of this mass in April 2016 with culture growing Escherichia coli and it is unclear if she was treated at that time. However, she has been on empiric IV antibiotics for the last 4 days during her hospitalization at [place], we will continue IV Zosyn for now and hold IV vancomycin. No other source of infection currently noted. Urine culture remains negative so far. Follow-up blood cultures. Continue IV hydration. No lactic acidosis. Hypotension could also be due to underlying cancer and radiation. Qualifiers: Hypotension type: unspecified hypotension type Qualified Code(s): I95.9 - Hypotension, unspecified (2) Acute renal failure Current Visit: Yes Status: Acute Assessment and plan: Could be related to underlying lymphoma and chemotherapy. Continue to monitor serum creatinine and continue IV hydration. Patient also is noted to have developed urinary retention in the last 4 days and is currently on indwelling Bullock catheter. Monitor urine output closely. CT abdomen/pelvis shows mild left-sided hydronephrosis due to ureteral compression by the tumor mass. Qualifiers: Acute renal failure type: unspecified Qualified Code(s): N17.9 - Acute kidney failure, unspecified (3) Atrial fibrillation Current Visit: Yes Status: Chronic Assessment and plan: Continue therapeutic dose of subcutaneous Lovenox given her underlying malignancy. Beta juarez is currently held due to hypotension. Qualifiers: Atrial fibrillation type: paroxysmal Qualified Code(s): I48.0 - Paroxysmal atrial fibrillation (4) DLBCL (diffuse large B cell lymphoma) Current Visit: Yes Status: Chronic Assessment and plan: Has been following with oncology at [facility] and also with [facility]; she is due for day 2 of palliative radiation today. Monitor for tumor lysis syndrome. multiple discussions have been held with the patient and family by palliative care team and oncology; patient is currently a candidate for palliative radiation but she is not receiving any active treatment for her colon cancer and no further chemotherapy for lymphoma. Prognosis is grave at this time. Patient and family not ready to consider the option of hospice at this time. Continue to follow. Pain control and supportive care. High risk for complications, poor prognosis. (5) Colon cancer Current Visit: Yes Status: Chronic Qualifiers: Colon location: sigmoid Qualified Code(s): C18.7 - Malignant neoplasm of sigmoid colon (6) Hypercalcemia of malignancy Current Visit: Yes Status: Chronic Assessment and plan: Corrected calcium is 11. Continue IV hydration and monitor serum calcium closely. - Subjective Interval history: Reports feeling weak and fatigued; cannot get out of bed or stand up; mild lower abdominal pain; no nausea, vomiting, no stool output in colostomy today; - Constitutional Vitals: Temp Pulse Resp BP Pulse Ox 97.9 F 117 16 91/63 96 06/16/16 08:37 06/16/16 08:47 06/16/16 08:37 06/16/16 08:37 06/16/16 08:37 General appearance: Present: A&O X 3, answers questions appropriately - Respiratory Respiratory exam: Present: CTAB. Absent: accessory muscle use, rales, rhonchi, wheezes - Cardiovascular Cardiovascular exam: Present: RRR, +S1, +S2. Absent: diastolic murmur, gallop, rubs, systolic murmur - GI/Abdominal GI/Abdominal exam: Present: normal bowel sounds, soft (tenderness in lower abdomen at the site of radiation), no peritoneal signs. Absent: distended, tenderness - Extremities Exam Extremities exam: Present: full ROM, pedal edema (diffuse B/L 2-3+ pedal edema, left>right), warm, radial pulses palpable and symetrical. Absent: calf tenderness, cyanotic - Skin Skin exam: Present: dry, intact Internal Medicine: Result - Labs CBC & Chem 7: 06/16/16 06:15 06/16/16 06:15 Labs: Short CBC 06/16/16 Range/Units 06:15 WBC 12.3 H (4.3-11.1) K/mcL Hgb 8.9 L (11.5-15.4) g/dL Hct 27.5 L (35.3-44.9) % Plt Count 235 (140-400) K/mcL Neutrophils # 11.0 H (1.6-8.9) K/mcL BMP 06/16/16 06:15 Sodium 137 Potassium 3.8 Chloride 109 Carbon Dioxide 21 BUN 27 H Creatinine 1.77 H Glucose 84 Calcium 9.0 Liver Function 06/16/16 Range/Units 06:15 Total Bilirubin 0.6 (0.2-1.2) mg/dL AST 22 (5-34) Units/L ALT 6 (0-55) Units/L Alkaline Phosphatase 88 (38-126) Units/L Albumin 1.5 L (3.5-5.0) g/dL - ABG Interpretation ABG results: PT/INR, D-dimer PT 10.7 Seconds (9.4-12.1) 06/15/16 14:27 Consult Discharge Plan - Plan Referrals: Storm Woo Jr, MD [Primary Care Provider] -
[2016-06-16] MEDS ORDERED: *HR* OxyCODONE/APAP 5/325 TABLET PO ONE (14:45)
[2016-06-16] MEDS: ASCORBIC ACID PO SCH (17:08)
[2016-06-16] MEDS: FERROUS FUMARATE PO SCH (17:08)
[2016-06-16] MEDS: Aspirin Enteric Coated 81 MG Tablet PO SCH (18:00)
[2016-06-16] MEDS: *HR* Enoxaparin 100 MG/ML SYRINGE SQ SCH (21:02)
[2016-06-17 05:52] LABS: Basophils # 0.1 K/mcL (0.0-0.2); Basophils % 0.5 %; Eosinophils # 0.4 K/mcL (0.0-0.6); Eosinophils % 3.9 %; Hematocrit 27.1 % (35.3-44.9); Hemoglobin 8.5 g/dL (11.5-15.4); Immature Granulocytes % 0.6 % (0-4); Lymphocytes # 0.2 K/mcL (0.6-4.6); Lymphocytes % 1.8 %; Mean Corpuscular HGB Conc 31.4 g/dL (31.6-35.5); Mean Corpuscular Hemoglobin 30.1 pg (28.0-33.3); Mean Corpuscular Volume 96.1 fL (83.0-100.0); Mean Platelet Volume 10.7 fL (9.4-12.4); Monocytes # 0.5 K/mcL (0.0-1.3); Monocytes % 4.2 %; Neutrophils # 9.5 K/mcL (1.6-8.9); Platelet Count 260 K/mcL (140-400); Red Blood Count 2.82 M/mcL (3.82-4.97); Red Cell Distribution Width 18.2 % (11.5-14.5)
[2016-06-17 06:19] LABS: Magnesium 1.1 mg/dL (1.6-2.6); Phosphorous 2.3 mg/dL (2.3-4.7); Uric Acid 3.8 mg/dL (2.6-6.0)
[2016-06-17 06:23] LABS: Alanine Aminotransferase < 6 Units/L (0-55); Albumin/Globulin Ratio 0.7 (1.1-2.2); Alkaline Phosphatase 78 Units/L (38-126); Aspartate Amino Transferase 19 Units/L (5-34); BUN/Creatinine Ratio 16 (6-26); Bilirubin,Total 0.5 mg/dL (0.2-1.2); Blood Urea Nitrogen 27 mg/dL (7-20); Calcium 8.3 mg/dL (8.6-10.8); Carbon Dioxide 22 mEq/L (19-29); Chloride 109 mEq/L (98-109); Glucose 90 mg/dL (70-99); Osmolality,Calculated 287 (280-300); Potassium 3.2 mEq/L (3.5-4.5); Sodium 136 mEq/L (136-145); Total Protein 3.4 g/dL (6.0-8.3); eGFR For African Americans 34 (> 60); eGFR For Non-African Americans 28 (> 60)
[2016-06-17 06:24] LABS: Albumin 1.4 g/dL (3.5-5.0)
[2016-06-17 06:59] LABS: Anisocytosis 2+ (Not Present); Platelet Estimate Normal (Normal)
[2016-06-17] MEDS: Multivit/Ca/Min/Fe/FA 1 TAB TABLET PO SCH (09:20)
[2016-06-17] MEDS: Piperacillin/Tazobactam 3.375 GM in D5% in Water (Mini-Bag+) 100 ML IVPB SCH ×2 (09:21→18:59)
[2016-06-17] MEDS: *HR* OxyCODONE/APAP 5/325 TABLET PO PRN ×2 (09:22→22:54)
[2016-06-17] MEDS: (Ginkgo Biloba [Ginkgo Biloba] 60 MG) PO SCH (09:23)
[2016-06-17] MEDS: VIT C PO SCH (09:23)
[2016-06-17] MEDS: [UNRECOGNIZED DRUG - OTHER] PO SCH (09:23)
[2016-06-17] MEDS: GLUC SU PO SCH (09:23)
[2016-06-17] MEDS: CHONDRO SU A PO SCH (09:23)
--- NOTE | 2016-06-17 09:54 | Palliative Progress Note ---
<Gokul Shore Pascual - Last Filed: 06/17/16 09:52> Date of Encounter: 06/17/16 Time of Encounter: 09:40 - Assessment and plan (1) Pain Current Visit: Yes Status: Acute Assessment and plan: Under good control this time. Continue to monitor. (2) Goals of care, counseling/discussion Current Visit: Yes Status: Acute Assessment and plan: Patient remains a DNR CCA, patient wished to be a DNI as well so this order has been placed. Goals of care for the patient to return [facility] for further rehabilitation and ultimately to home when safe to do so. Given the patient's underlying medical condition and she will likely be a candidate for hospice but remains resistant to this at this time. We will continue to follow along and reassess the patient's goals of care and offer services as she wishes. (3) Colon cancer Current Visit: Yes Status: Chronic Assessment and plan: Currently getting radiation treatments that are palliative in nature per oncology. 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 Patient is currently receiving radiation treatments by Dr. Allen. Today is treatment #3 scheduled at 10:30 this morning. Plan is for a total of 10 treatments as the patient tolerates. - Time Spent With Patient Total time spent is greater than 50% in coordination of care (as documented) at patient's floor/unit and/or counseling patient: - Subjective Interval history: Patient seen and examined bedside. Patient has no complaints today. She denies pain, dyspnea, nausea, vomiting. Patient is drinking adequately and continues to improve her food intake. - Constitutional Vitals: Abnormal lab results RBC 2.82 M/mcL (3.82-4.97) L 06/17/16 04:20 Hgb 8.5 g/dL (11.5-15.4) L 06/17/16 04:20 Hct 27.1 % (35.3-44.9) L 06/17/16 04:20 MCHC 31.4 g/dL (31.6-35.5) L 06/17/16 04:20 RDW 18.2 % (11.5-14.5) H 06/17/16 04:20 Neutrophils # 9.5 K/mcL (1.6-8.9) H 06/17/16 04:20 Lymphocytes # 0.2 K/mcL (0.6-4.6) L 06/17/16 04:20 Anisocytosis 2+ (Not Present) A 06/17/16 04:20 Potassium 3.2 mEq/L (3.5-4.5) L 06/17/16 04:30 BUN 27 mg/dL (7-20) H 06/17/16 04:30 Creatinine 1.71 mg/dL (0.57-1.11) H 06/17/16 04:30 Est GFR ( Amer) 34 (> 60) L 06/17/16 04:30 Est GFR (Non-Af Amer) 28 (> 60) L 06/17/16 04:30 Calcium 8.3 mg/dL (8.6-10.8) L 06/17/16 04:30 Magnesium 1.1 mg/dL (1.6-2.6) L 06/17/16 04:30 Serum Total Protein 3.4 g/dL (6.0-8.3) L 06/17/16 04:30 Albumin 1.4 g/dL (3.5-5.0) L 06/17/16 04:30 Globulin 2.0 g/dL (2.4-3.5) L 06/17/16 04:30 Albumin/Globulin Ratio 0.7 (1.1-2.2) L 06/17/16 04:30 Urine Clarity Turbid (Clear) A 06/15/16 15:10 Urine Protein 30 mg/dL (Neg-Trace) H 06/15/16 15:10 Urine Blood Moderate (Negative) H 06/15/16 15:10 Urine Nitrite Positive (Negative) A 06/15/16 15:10 Ur Leukocyte Esterase Large (Negative) H 06/15/16 15:10 Urine Microscopic RBC 15-30 per hpf (0-3) H 06/15/16 15:10 Urine Microscopic WBC TNTC per hpf (0-3) H 06/15/16 15:10 Ur Squamous Epith Cells Many per lpf (None-Few) H 06/15/16 15:10 Urine Yeast Few per hpf (None Seen) H 06/15/16 15:10 Ur Culture Indicated? YES (NO) A 06/15/16 15:10 General appearance: Present: no acute distress - ENT ENT exam: Present: mucous membranes moist - Respiratory Respiratory exam: Present: CTAB. Absent: rales, rhonchi, wheezes - Cardiovascular Cardiovascular exam: Present: tachycardia. Absent: gallop, rubs, systolic murmur - GI/Abdominal GI/Abdominal exam: Present: normal bowel sounds, soft. Absent: distended, tenderness - Extremities Exam Additional comments: 4+ pitting edema to the lower extremities bilaterally. - Neurological Exam Neurological exam: Present: alert, CN II-XII intact, oriented X3, no focal deficits Palliative Quality Palliative Quality: Screen for Code Status: Yes, Screen for Goals of Care: Yes, Screen for Pain: Yes, If Pain Regimen Started, Initiate Bowel Regimen: Yes, Screen for Nausea/Vomitting: Yes Code Status: 06/15/16 16:32 Resuscitation Status: Active [RES] Routine Comment: Resuscitation Status: [id number] - Labs CBC & Chem 7: 06/17/16 04:20 06/17/16 04:30 Labs: Laboratory Results - last 24 hr 06/17/16 06/17/16 06/17/16 04:20 04:30 04:30 WBC 10.7 RBC 2.82 L Hgb 8.5 L Hct 27.1 L MCV 96.1 MCH 30.1 MCHC 31.4 L RDW 18.2 H Plt Count 260 MPV 10.7 Immature Gran % 0.6 Seg Neutrophils % 89.0 Lymphocytes % 1.8 Monocytes % 4.2 Eosinophils % 3.9 Basophils % 0.5 Neutrophils # 9.5 H Lymphocytes # 0.2 L Monocytes # 0.5 Eosinophils # 0.4 Basophils # 0.1 Platelet Estimate Normal Anisocytosis 2+ A Sodium 136 Potassium 3.2 L Chloride 109 Carbon Dioxide 22 BUN 27 H Creatinine 1.71 H Est GFR ( Amer) 34 L Est GFR (Non-Af Amer) 28 L BUN/Creatinine Ratio 16 Glucose 90 Calculated Osmolality 287 Uric Acid 3.8 Calcium 8.3 L Phosphorus 2.3 Magnesium 1.1 L Total Bilirubin 0.5 AST 19 ALT < 6 Alkaline Phosphatase 78 Serum Total Protein 3.4 L Albumin 1.4 L Globulin 2.0 L Albumin/Globulin Ratio 0.7 L - ABG Interpretation ABG results: PT/INR, D-dimer PT 10.7 Seconds (9.4-12.1) 06/15/16 14:27 Consult Discharge Plan - Plan Referrals: Storm Woo Jr, MD [Primary Care Provider] - <KetanabyMadan Power - Last Filed: 06/17/16 11:28> - Assessment and plan (1) Pain Current Visit: Yes Status: Acute (2) Goals of care, counseling/discussion Current Visit: Yes Status: Acute (3) Colon cancer Current Visit: Yes Status: Chronic Qualifiers: Colon location: sigmoid Qualified Code(s): C18.7 - Malignant neoplasm of sigmoid colon (4) Lymphedema of left lower extremity Current Visit: No Status: Acute - Time Spent With Patient Total time spent is greater than 50% in coordination of care (as documented) at patient's floor/unit and/or counseling patient: - Constitutional Vitals: Abnormal lab results RBC 2.82 M/mcL (3.82-4.97) L 06/17/16 04:20 Hgb 8.5 g/dL (11.5-15.4) L 06/17/16 04:20 Hct 27.1 % (35.3-44.9) L 06/17/16 04:20 MCHC 31.4 g/dL (31.6-35.5) L 06/17/16 04:20 RDW 18.2 % (11.5-14.5) H 06/17/16 04:20 Neutrophils # 9.5 K/mcL (1.6-8.9) H 06/17/16 04:20 Lymphocytes # 0.2 K/mcL (0.6-4.6) L 06/17/16 04:20 Anisocytosis 2+ (Not Present) A 06/17/16 04:20 Potassium 3.2 mEq/L (3.5-4.5) L 06/17/16 04:30 BUN 27 mg/dL (7-20) H 06/17/16 04:30 Creatinine 1.71 mg/dL (0.57-1.11) H 06/17/16 04:30 Est GFR ( Amer) 34 (> 60) L 06/17/16 04:30 Est GFR (Non-Af Amer) 28 (> 60) L 06/17/16 04:30 Calcium 8.3 mg/dL (8.6-10.8) L 06/17/16 04:30 Magnesium 1.1 mg/dL (1.6-2.6) L 06/17/16 04:30 Serum Total Protein 3.4 g/dL (6.0-8.3) L 06/17/16 04:30 Albumin 1.4 g/dL (3.5-5.0) L 06/17/16 04:30 Globulin 2.0 g/dL (2.4-3.5) L 06/17/16 04:30 Albumin/Globulin Ratio 0.7 (1.1-2.2) L 06/17/16 04:30 Urine Clarity Turbid (Clear) A 06/15/16 15:10 Urine Protein 30 mg/dL (Neg-Trace) H 06/15/16 15:10 Urine Blood Moderate (Negative) H 06/15/16 15:10 Urine Nitrite Positive (Negative) A 06/15/16 15:10 Ur Leukocyte Esterase Large (Negative) H 06/15/16 15:10 Urine Microscopic RBC 15-30 per hpf (0-3) H 06/15/16 15:10 Urine Microscopic WBC TNTC per hpf (0-3) H 06/15/16 15:10 Ur Squamous Epith Cells Many per lpf (None-Few) H 06/15/16 15:10 Urine Yeast Few per hpf (None Seen) H 06/15/16 15:10 Ur Culture Indicated? YES (NO) A 06/15/16 15:10 - Attending Attestation I examined this patient and my medical decision-making was reviewed with the BUSHEL WORKER/PA/Advanced Practice Nurse/Resident Physician. I agree with the documented findings, disposition and treatment plan as described except to the extent set forth below. Palliative Quality Code Status: 06/15/16 16:32 Resuscitation Status: Active [RES] Routine Comment: Resuscitation Status: [id number] - Labs CBC & Chem 7: 06/17/16 04:20 06/17/16 04:30 Labs: Laboratory Results - last 24 hr 06/17/16 06/17/16 06/17/16 04:20 04:30 04:30 WBC 10.7 RBC 2.82 L Hgb 8.5 L Hct 27.1 L MCV 96.1 MCH 30.1 MCHC 31.4 L RDW 18.2 H Plt Count 260 MPV 10.7 Immature Gran % 0.6 Seg Neutrophils % 89.0 Lymphocytes % 1.8 Monocytes % 4.2 Eosinophils % 3.9 Basophils % 0.5 Neutrophils # 9.5 H Lymphocytes # 0.2 L Monocytes # 0.5 Eosinophils # 0.4 Basophils # 0.1 Platelet Estimate Normal Anisocytosis 2+ A Sodium 136 Potassium 3.2 L Chloride 109 Carbon Dioxide 22 BUN 27 H Creatinine 1.71 H Est GFR ( Amer) 34 L Est GFR (Non-Af Amer) 28 L BUN/Creatinine Ratio 16 Glucose 90 Calculated Osmolality 287 Uric Acid 3.8 Calcium 8.3 L Phosphorus 2.3 Magnesium 1.1 L Total Bilirubin 0.5 AST 19 ALT < 6 Alkaline Phosphatase 78 Serum Total Protein 3.4 L Albumin 1.4 L Globulin 2.0 L Albumin/Globulin Ratio 0.7 L - ABG Interpretation ABG results: PT/INR, D-dimer PT 10.7 Seconds (9.4-12.1) 06/15/16 14:27
--- NOTE | 2016-06-17 11:11 | Internal Med Progress Note ---
Date of Encounter: 06/17/16 Time of Encounter: 11:09 - Assessment and plan (1) Hypotension Current Visit: Yes Status: Acute Assessment and plan: Uncertain etiology but likely related to malnutrition and hypoalbuminemia. Continue IV hydration. Start IV albumin. Nutrition consult. Continue empiric IV antibiotics for necrotic pelvic lymph nodes/phlegmon. No other source of infection currently noted. Blood and urine cultures remain negative. Hypotension could also be due to underlying cancer and radiation. Qualifiers: Hypotension type: unspecified hypotension type Qualified Code(s): I95.9 - Hypotension, unspecified (2) Acute renal failure Current Visit: Yes Status: Acute Assessment and plan: Could be related to underlying lymphoma and chemotherapy. Serum creatinine stable at 1.7. Continue to monitor serum creatinine and continue IV hydration. Monitor urine output closely, on Bullock catheterization due to urinary retention. CT abdomen/pelvis shows mild left-sided hydronephrosis due to ureteral compression by the tumor mass. Qualifiers: Acute renal failure type: unspecified Qualified Code(s): N17.9 - Acute kidney failure, unspecified (3) Atrial fibrillation Current Visit: Yes Status: Chronic Assessment and plan: Continue therapeutic dose of subcutaneous Lovenox given her underlying malignancy. Beta juarez is currently held due to hypotension. 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 Monitor for tumor lysis syndrome. multiple discussions have been held with the patient and family by palliative care team and oncology; patient is currently a candidate for palliative radiation but she is not receiving any active treatment for her colon cancer and no further chemotherapy for lymphoma. Prognosis is grave at this time. Patient and family not ready to consider the option of hospice at this time. Continue to follow. Pain control and supportive care. High risk for complications, poor prognosis. (5) Colon cancer Current Visit: Yes Status: Chronic Qualifiers: Colon location: sigmoid Qualified Code(s): C18.7 - Malignant neoplasm of sigmoid colon (6) Hypercalcemia of malignancy Current Visit: Yes Status: Chronic Assessment and plan: Improving with IV hydration. Corrected serum calcium noted to be 10.4 Continue IV hydration and monitor serum calcium closely. (7) Hypoalbuminemia due to protein-calorie malnutrition Current Visit: Yes Status: Acute - Subjective Interval history: Continues to feel weak but improving. Improving appetite. Just got back from third session of radiation therapy. Improved abdominal pain. - Constitutional Vitals: Temp Pulse Resp BP Pulse Ox 98.0 F 114 14 103/68 95 06/17/16 07:26 06/17/16 07:26 06/17/16 07:26 06/17/16 07:26 06/17/16 07:26 General appearance: Present: A&O X 3, answers questions appropriately - Respiratory Respiratory exam: Present: CTAB. Absent: accessory muscle use, rales, rhonchi, wheezes - Cardiovascular Cardiovascular exam: Present: irregular rhythm, +S1, +S2, tachycardia. Absent: diastolic murmur, gallop, rubs, systolic murmur - GI/Abdominal GI/Abdominal exam: Present: normal bowel sounds, soft, no peritoneal signs. Absent: distended, tenderness - Extremities Exam Extremities exam: Present: full ROM, pedal edema (3+ pitting pedal edema bilaterally), warm, radial pulses palpable and symetrical. Absent: calf tenderness, cyanotic - Neurological Exam Neurological exam: Present: CN II-XII intact, oriented X3, no focal deficits. Absent: pronater drift, facial droop, speech deficit Internal Medicine: Result - Labs CBC & Chem 7: 06/17/16 04:20 06/17/16 04:30 Labs: Short CBC 06/17/16 Range/Units 04:20 WBC 10.7 (4.3-11.1) K/mcL Hgb 8.5 L (11.5-15.4) g/dL Hct 27.1 L (35.3-44.9) % Plt Count 260 (140-400) K/mcL Neutrophils # 9.5 H (1.6-8.9) K/mcL BMP 06/17/16 04:30 Sodium 136 Potassium 3.2 L Chloride 109 Carbon Dioxide 22 BUN 27 H Creatinine 1.71 H Glucose 90 Calcium 8.3 L Liver Function 06/17/16 Range/Units 04:30 Total Bilirubin 0.5 (0.2-1.2) mg/dL AST 19 (5-34) Units/L ALT < 6 (0-55) Units/L Alkaline Phosphatase 78 (38-126) Units/L Albumin 1.4 L (3.5-5.0) g/dL - ABG Interpretation ABG results: PT/INR, D-dimer PT 10.7 Seconds (9.4-12.1) 06/15/16 14:27 Consult Discharge Plan - Plan Referrals: Storm Woo Jr, MD [Primary Care Provider] -
[2016-06-17] MEDS: Albumin 25% 25gram/100mL 25 GM/100 ML IV.SOLN IVPB SCH ×2 (16:38→23:55)
[2016-06-17] MEDS: 0.9 % Sodium Chloride 1,000 ML IVC SCH ×2 (16:46→18:23)
[2016-06-17] MEDS ORDERED: Magnesium Sulfate 2 GM in D5% in Water 100 ML IVPB ONE (18:04)
[2016-06-17] MEDS ORDERED: Potassium Chloride Elixir 20 MEQ/15 ML UDC PO ONE (18:04)
[2016-06-17] MEDS: Aspirin Enteric Coated 81 MG Tablet PO SCH (18:59)
[2016-06-17] MEDS: FERROUS FUMARATE PO SCH (19:00)
[2016-06-17] MEDS: ASCORBIC ACID PO SCH (19:00)
[2016-06-17] MEDS: *HR* Enoxaparin 100 MG/ML SYRINGE SQ SCH (20:58)
[2016-06-17] MEDS: Famotidine 20 MG TABLET PO SCH (20:59)
[2016-06-18] MEDS: 0.9 % Sodium Chloride 1,000 ML IVC SCH ×2 (00:50→15:28)
[2016-06-18] MEDS: Piperacillin/Tazobactam 3.375 GM in D5% in Water (Mini-Bag+) 100 ML IVPB SCH ×3 (00:52→17:19)
[2016-06-18 04:32] LABS: Basophils % 0.3 %; Eosinophils # 0.3 K/mcL (0.0-0.6); Eosinophils % 4.4 %; Immature Granulocytes % 0.7 % (0-4); Lymphocytes # 0.2 K/mcL (0.6-4.6); Lymphocytes % 2.6 %; Mean Corpuscular Hemoglobin 30.9 pg (28.0-33.3); Mean Corpuscular Volume 96.5 fL (83.0-100.0); Mean Platelet Volume 10.4 fL (9.4-12.4); Monocytes # 0.3 K/mcL (0.0-1.3); Monocytes % 4.2 %; Neutrophils # 6.5 K/mcL (1.6-8.9); Platelet Count 246 K/mcL (140-400); Red Blood Count 2.59 M/mcL (3.82-4.97); Segmented Neutrophils % 87.8 %
[2016-06-18 04:52] LABS: Albumin/Globulin Ratio 0.9 (1.1-2.2); Alkaline Phosphatase 70 Units/L (38-126); Aspartate Amino Transferase 18 Units/L (5-34); BUN/Creatinine Ratio 15 (6-26); Bilirubin,Total 0.3 mg/dL (0.2-1.2); Blood Urea Nitrogen 22 mg/dL (7-20); Calcium 8.1 mg/dL (8.6-10.8); Carbon Dioxide 19 mEq/L (19-29); Chloride 111 mEq/L (98-109); Globulin 1.9 g/dL (2.4-3.5); Glucose 98 mg/dL (70-99); Magnesium 1.3 mg/dL (1.6-2.6); Osmolality,Calculated 287 (280-300); Potassium 3.4 mEq/L (3.5-4.5); Sodium 137 mEq/L (136-145); Total Protein 3.7 g/dL (6.0-8.3); eGFR For African Americans 40 (> 60); eGFR For Non-African Americans 33 (> 60)
[2016-06-18 04:59] LABS: Alanine Aminotransferase < 6 Units/L (0-55); Albumin 1.8 g/dL (3.5-5.0)
[2016-06-18 05:32] LABS: Anisocytosis 1+ (Not Present); Platelet Estimate Normal (Normal)
[2016-06-18] MEDS: Multivit/Ca/Min/Fe/FA 1 TAB TABLET PO SCH (08:12)
[2016-06-18] MEDS: VIT C PO SCH (08:18)
[2016-06-18] MEDS: [UNRECOGNIZED DRUG - OTHER] PO SCH (08:18)
[2016-06-18] MEDS: CHONDRO SU A PO SCH (08:18)
[2016-06-18] MEDS: GLUC SU PO SCH (08:18)
[2016-06-18] MEDS: (Ginkgo Biloba [Ginkgo Biloba] 60 MG) PO SCH (08:22)
--- NOTE | 2016-06-18 09:25 | Palliative Progress Note ---
<Francisco JavierGokul jeff - Last Filed: 06/18/16 09:23> Date of Encounter: 06/18/16 Time of Encounter: 09:00 - Assessment and plan (1) Pain Current Visit: Yes Status: Acute Assessment and plan: Under good control this time. Continue to monitor. (2) Goals of care, counseling/discussion Current Visit: Yes Status: Acute Assessment and plan: Patient remains a DNR CCA, patient wished to be a DNI as well so this order has been placed. Goals of care for the patient to return to [facility] bed for further rehabilitation and ultimately to home when safe to do so. Appears to be making improvements with palliative radiation. Given the patient's underlying medical condition and she will likely be a candidate for hospice but remains resistant to this at this time. We will continue to follow along and reassess the patient's goals of care and offer services as she wishes. (3) Colon cancer Current Visit: Yes Status: Chronic Assessment and plan: Currently getting radiation treatments that are palliative in nature per oncology. Qualifiers: Colon location: sigmoid Qualified Code(s): C18.7 - Malignant neoplasm of sigmoid colon (4) Lymphedema of left lower extremity Current Visit: No Status: Acute Assessment and plan: Improved. 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 Patient is currently receiving radiation treatments by Dr. Allen. Today is treatment #4 scheduled at 11:30 this morning. Plan is for a total of 10 treatments as the patient tolerates. - Time Spent With Patient Total time spent is greater than 50% in coordination of care (as documented) at patient's floor/unit and/or counseling patient: - Subjective Interval history: Patient seen and examined bedside. Patient has no complaints today, she states she feels much improved since admission. She states her swelling has improved. She denies dyspnea, nausea, vomiting. She has occasional pain in her left leg that is well controlled by pain medication. Patient is drinking adequately and continues to improve her food intake. - Constitutional Vitals: Abnormal lab results RBC 2.59 M/mcL (3.82-4.97) L 06/18/16 03:50 Hgb 8.0 g/dL (11.5-15.4) L 06/18/16 03:50 Hct 25.0 % (35.3-44.9) L 06/18/16 03:50 RDW 18.0 % (11.5-14.5) H 06/18/16 03:50 Lymphocytes # 0.2 K/mcL (0.6-4.6) L 06/18/16 03:50 Anisocytosis 1+ (Not Present) A 06/18/16 03:50 Potassium 3.4 mEq/L (3.5-4.5) L 06/18/16 03:50 Chloride 111 mEq/L (98-109) H 06/18/16 03:50 BUN 22 mg/dL (7-20) H 06/18/16 03:50 Creatinine 1.50 mg/dL (0.57-1.11) H 06/18/16 03:50 Est GFR ( Amer) 40 (> 60) L 06/18/16 03:50 Est GFR (Non-Af Amer) 33 (> 60) L 06/18/16 03:50 Calcium 8.1 mg/dL (8.6-10.8) L 06/18/16 03:50 Magnesium 1.3 mg/dL (1.6-2.6) L 06/18/16 03:50 Serum Total Protein 3.7 g/dL (6.0-8.3) L 06/18/16 03:50 Albumin 1.8 g/dL (3.5-5.0) L D 06/18/16 03:50 Globulin 1.9 g/dL (2.4-3.5) L 06/18/16 03:50 Albumin/Globulin Ratio 0.9 (1.1-2.2) L 06/18/16 03:50 Urine Clarity Turbid (Clear) A 06/15/16 15:10 Urine Protein 30 mg/dL (Neg-Trace) H 06/15/16 15:10 Urine Blood Moderate (Negative) H 06/15/16 15:10 Urine Nitrite Positive (Negative) A 06/15/16 15:10 Ur Leukocyte Esterase Large (Negative) H 06/15/16 15:10 Urine Microscopic RBC 15-30 per hpf (0-3) H 06/15/16 15:10 Urine Microscopic WBC TNTC per hpf (0-3) H 06/15/16 15:10 Ur Squamous Epith Cells Many per lpf (None-Few) H 06/15/16 15:10 Urine Yeast Few per hpf (None Seen) H 06/15/16 15:10 Ur Culture Indicated? YES (NO) A 06/15/16 15:10 - ENT ENT exam: Present: mucous membranes moist - Respiratory Respiratory exam: Present: CTAB. Absent: rales, rhonchi, wheezes - Cardiovascular Cardiovascular exam: Present: irregular rhythm, tachycardia. Absent: gallop, rubs, systolic murmur - GI/Abdominal GI/Abdominal exam: Present: normal bowel sounds, soft. Absent: distended, tenderness - Extremities Exam Additional comments: Left lower extremity edema present but significantly improved since admission. - Neurological Exam Neurological exam: Present: alert, CN II-XII intact, oriented X3, no focal deficits Palliative Quality Palliative Quality: Screen for Code Status: Yes, Screen for Goals of Care: Yes, Screen for Pain: Yes, If Pain Regimen Started, Initiate Bowel Regimen: Yes, Screen for Nausea/Vomitting: Yes Code Status: 06/15/16 16:32 Resuscitation Status: Active [RES] Routine Comment: Resuscitation Status: [id number] - Labs CBC & Chem 7: 06/18/16 03:50 06/18/16 03:50 Labs: Laboratory Results - last 24 hr 06/18/16 06/18/16 03:50 03:50 WBC 7.4 RBC 2.59 L Hgb 8.0 L Hct 25.0 L MCV 96.5 MCH 30.9 MCHC 32.0 RDW 18.0 H Plt Count 246 MPV 10.4 Immature Gran % 0.7 Seg Neutrophils % 87.8 Lymphocytes % 2.6 Monocytes % 4.2 Eosinophils % 4.4 Basophils % 0.3 Neutrophils # 6.5 Lymphocytes # 0.2 L Monocytes # 0.3 Eosinophils # 0.3 Basophils # 0.0 Platelet Estimate Normal Anisocytosis 1+ A Sodium 137 Potassium 3.4 L Chloride 111 H Carbon Dioxide 19 BUN 22 H Creatinine 1.50 H Est GFR ( Amer) 40 L Est GFR (Non-Af Amer) 33 L BUN/Creatinine Ratio 15 Glucose 98 Calculated Osmolality 287 Calcium 8.1 L Magnesium 1.3 L Total Bilirubin 0.3 AST 18 ALT < 6 Alkaline Phosphatase 70 Serum Total Protein 3.7 L Albumin 1.8 L D Globulin 1.9 L Albumin/Globulin Ratio 0.9 L - ABG Interpretation ABG results: PT/INR, D-dimer PT 10.7 Seconds (9.4-12.1) 06/15/16 14:27 Consult Discharge Plan - Plan Referrals: Storm Woo Jr, MD [Primary Care Provider] - (PT IS GOING BACK TO REHAB NO PCP APPOINTMENT NEEDED) <Madan Christianson - Last Filed: 06/18/16 10:39> - Assessment and plan (1) Pain Current Visit: Yes Status: Acute (2) Goals of care, counseling/discussion Current Visit: Yes Status: Acute (3) Colon cancer Current Visit: Yes Status: Chronic Qualifiers: Colon location: sigmoid Qualified Code(s): C18.7 - Malignant neoplasm of sigmoid colon (4) Lymphedema of left lower extremity Current Visit: No Status: Acute - Time Spent With Patient Total time spent is greater than 50% in coordination of care (as documented) at patient's floor/unit and/or counseling patient: - Constitutional Vitals: Abnormal lab results RBC 2.59 M/mcL (3.82-4.97) L 06/18/16 03:50 Hgb 8.0 g/dL (11.5-15.4) L 06/18/16 03:50 Hct 25.0 % (35.3-44.9) L 06/18/16 03:50 RDW 18.0 % (11.5-14.5) H 06/18/16 03:50 Lymphocytes # 0.2 K/mcL (0.6-4.6) L 06/18/16 03:50 Anisocytosis 1+ (Not Present) A 06/18/16 03:50 Potassium 3.4 mEq/L (3.5-4.5) L 06/18/16 03:50 Chloride 111 mEq/L (98-109) H 06/18/16 03:50 BUN 22 mg/dL (7-20) H 06/18/16 03:50 Creatinine 1.50 mg/dL (0.57-1.11) H 06/18/16 03:50 Est GFR ( Amer) 40 (> 60) L 06/18/16 03:50 Est GFR (Non-Af Amer) 33 (> 60) L 06/18/16 03:50 Calcium 8.1 mg/dL (8.6-10.8) L 06/18/16 03:50 Magnesium 1.3 mg/dL (1.6-2.6) L 06/18/16 03:50 Serum Total Protein 3.7 g/dL (6.0-8.3) L 06/18/16 03:50 Albumin 1.8 g/dL (3.5-5.0) L D 06/18/16 03:50 Globulin 1.9 g/dL (2.4-3.5) L 06/18/16 03:50 Albumin/Globulin Ratio 0.9 (1.1-2.2) L 06/18/16 03:50 Urine Clarity Turbid (Clear) A 06/15/16 15:10 Urine Protein 30 mg/dL (Neg-Trace) H 06/15/16 15:10 Urine Blood Moderate (Negative) H 06/15/16 15:10 Urine Nitrite Positive (Negative) A 06/15/16 15:10 Ur Leukocyte Esterase Large (Negative) H 06/15/16 15:10 Urine Microscopic RBC 15-30 per hpf (0-3) H 06/15/16 15:10 Urine Microscopic WBC TNTC per hpf (0-3) H 06/15/16 15:10 Ur Squamous Epith Cells Many per lpf (None-Few) H 06/15/16 15:10 Urine Yeast Few per hpf (None Seen) H 06/15/16 15:10 Ur Culture Indicated? YES (NO) A 06/15/16 15:10 - Attending Attestation I examined this patient and my medical decision-making was reviewed with the DAIRY FARMWORKER/PA/Advanced Practice Nurse/Resident Physician. I agree with the documented findings, disposition and treatment plan as described except to the extent set forth below. The internal medicine team continues to work with the patient's blood pressure, however has had low blood pressure in the past and this may not be as big a problem as it appears. Issues CODE STATUS is established and goals of care are firmly established palliative we will follow from a distance at this point will probably returning to [place] to commute for her radiation therapy treatments in the internal medicine team feels that they do not have anything further to do with regards to her blood pressure. Palliative we will follow up on Tuesday if the patient is still here. Palliative Quality Code Status: 06/15/16 16:32 Resuscitation Status: Active [RES] Routine Comment: Resuscitation Status: [id number] - Labs CBC & Chem 7: 06/18/16 03:50 06/18/16 03:50 Labs: Laboratory Results - last 24 hr 06/18/16 06/18/16 03:50 03:50 WBC 7.4 RBC 2.59 L Hgb 8.0 L Hct 25.0 L MCV 96.5 MCH 30.9 MCHC 32.0 RDW 18.0 H Plt Count 246 MPV 10.4 Immature Gran % 0.7 Seg Neutrophils % 87.8 Lymphocytes % 2.6 Monocytes % 4.2 Eosinophils % 4.4 Basophils % 0.3 Neutrophils # 6.5 Lymphocytes # 0.2 L Monocytes # 0.3 Eosinophils # 0.3 Basophils # 0.0 Platelet Estimate Normal Anisocytosis 1+ A Sodium 137 Potassium 3.4 L Chloride 111 H Carbon Dioxide 19 BUN 22 H Creatinine 1.50 H Est GFR ( Amer) 40 L Est GFR (Non-Af Amer) 33 L BUN/Creatinine Ratio 15 Glucose 98 Calculated Osmolality 287 Calcium 8.1 L Magnesium 1.3 L Total Bilirubin 0.3 AST 18 ALT < 6 Alkaline Phosphatase 70 Serum Total Protein 3.7 L Albumin 1.8 L D Globulin 1.9 L Albumin/Globulin Ratio 0.9 L - ABG Interpretation ABG results: PT/INR, D-dimer PT 10.7 Seconds (9.4-12.1) 06/15/16 14:27
[2016-06-18] MEDS ORDERED: Magnesium Sulfate 2 GM in D5% in Water 100 ML IVPB ONE (09:54)
[2016-06-18] MEDS ORDERED: Potassium Chloride Elixir 20 MEQ/15 ML UDC PO ONE (09:54)
[2016-06-18] MEDS: Albumin 25% 25gram/100mL 25 GM/100 ML IV.SOLN IVPB SCH ×2 (12:31→17:26)
[2016-06-18] MEDS: *HR* OxyCODONE/APAP 5/325 TABLET PO PRN (12:31)
[2016-06-18] MEDS: ASCORBIC ACID PO SCH (17:17)
[2016-06-18] MEDS: FERROUS FUMARATE PO SCH (17:17)
[2016-06-18] MEDS: Aspirin Enteric Coated 81 MG Tablet PO SCH (17:18)
--- NOTE | 2016-06-18 18:25 | Internal Med Progress Note ---
Date of Encounter: 06/18/16 Time of Encounter: 11:30 - Assessment and plan (1) Hypomagnesemia Current Visit: Yes Status: Acute Assessment and plan: Likely due to poor oral intake. Supplement with IV magnesium sulfate and oral magnesium oxide. Continue to monitor closely. (2) Hypokalemia Current Visit: Yes Status: Acute Assessment and plan: Likely related to poor oral intake. Supplement with oral potassium chloride. (3) Hypotension Current Visit: Yes Status: Acute Assessment and plan: Uncertain etiology but likely related to malnutrition and hypoalbuminemia. Continue IV hydration. Has received 4 doses of IV albumin with minimal improvement in blood pressure. However patient remains asymptomatic. Nutrition consult noted. Continue empiric IV antibiotics for necrotic pelvic lymph nodes/phlegmon. No other source of infection currently noted. Blood and urine cultures remain negative. Hypotension could also be due to underlying cancer and radiation. Case discussed with radiation oncologist and no further recommendations; BP may not become normal however it may not be a pressing issue if patient is asymptomatic; plan to complete 10 days of radiation; Qualifiers: Hypotension type: unspecified hypotension type Qualified Code(s): I95.9 - Hypotension, unspecified (4) Acute renal failure Current Visit: Yes Status: Acute Assessment and plan: Could be related to underlying lymphoma and chemotherapy. Serum creatinine improving slightly. Continue to monitor serum creatinine and continue IV hydration. Monitor urine output closely, on Bullock catheterization due to urinary retention. CT abdomen/pelvis shows mild left-sided hydronephrosis due to ureteral compression by the tumor mass. Qualifiers: Acute renal failure type: unspecified Qualified Code(s): N17.9 - Acute kidney failure, unspecified (5) Atrial fibrillation Current Visit: Yes Status: Chronic Assessment and plan: Continue therapeutic dose of subcutaneous Lovenox given her underlying malignancy. Beta juarez is currently held due to hypotension. Qualifiers: Atrial fibrillation type: paroxysmal Qualified Code(s): I48.0 - Paroxysmal atrial fibrillation (6) DLBCL (diffuse large B cell lymphoma) Current Visit: Yes Status: Chronic Assessment and plan: Has been following with oncology at [facility] and also with [facility]; she received day 4 of palliative radiation today. Monitor for tumor lysis syndrome. multiple discussions have been held with the patient and family by palliative care team and oncology; patient is currently a candidate for palliative radiation and not receiving any active treatment for her colon cancer and no further chemotherapy for lymphoma. Prognosis is grave at this time. Patient and family not ready to consider the option of hospice at this time. Continue to follow. Pain control and supportive care. High risk for complications, poor prognosis. (7) Colon cancer Current Visit: Yes Status: Chronic Qualifiers: Colon location: sigmoid Qualified Code(s): C18.7 - Malignant neoplasm of sigmoid colon (8) Hypercalcemia of malignancy Current Visit: Yes Status: Chronic Assessment and plan: Improving with IV hydration. Corrected serum calcium noted to be 9.9; Continue IV hydration and monitor serum calcium closely. (9) Hypoalbuminemia due to protein-calorie malnutrition Current Visit: Yes Status: Chronic Assessment and plan: Continue protein supplements. Nutrition consult appreciated. - Subjective Interval history: Continues to feel weak but improving. Improving appetite. Improved abdominal pain, no nausea or vomiting or diarrhea. Plan of care discussed with patient's son at bedside. Family seems to have difficulty in understanding the complete clinical picture, cannot listen to and process all pertinent medical information. - Constitutional Vitals: Temp Pulse Resp BP Pulse Ox 98.2 F 79 16 84/64 95 06/18/16 16:29 06/18/16 16:29 06/18/16 16:29 06/18/16 16:29 06/18/16 16:29 General appearance: Present: A&O X 3, answers questions appropriately - Respiratory Respiratory exam: Present: CTAB. Absent: accessory muscle use, rales, rhonchi, wheezes - Cardiovascular Cardiovascular exam: Present: RRR, +S1, +S2. Absent: diastolic murmur, gallop, rubs, systolic murmur - GI/Abdominal GI/Abdominal exam: Present: normal bowel sounds, soft, no peritoneal signs. Absent: distended, tenderness - Extremities Exam Extremities exam: Present: pedal edema, warm, radial pulses palpable and symetrical. Absent: calf tenderness, cyanotic Internal Medicine: Result - Labs CBC & Chem 7: 06/18/16 03:50 06/18/16 03:50 Labs: Short CBC 06/18/16 Range/Units 03:50 WBC 7.4 (4.3-11.1) K/mcL Hgb 8.0 L (11.5-15.4) g/dL Hct 25.0 L (35.3-44.9) % Plt Count 246 (140-400) K/mcL Neutrophils # 6.5 (1.6-8.9) K/mcL BMP 06/18/16 03:50 Sodium 137 Potassium 3.4 L Chloride 111 H Carbon Dioxide 19 BUN 22 H Creatinine 1.50 H Glucose 98 Calcium 8.1 L Liver Function 06/18/16 Range/Units 03:50 Total Bilirubin 0.3 (0.2-1.2) mg/dL AST 18 (5-34) Units/L ALT < 6 (0-55) Units/L Alkaline Phosphatase 70 (38-126) Units/L Albumin 1.8 L D (3.5-5.0) g/dL - ABG Interpretation ABG results: PT/INR, D-dimer PT 10.7 Seconds (9.4-12.1) 06/15/16 14:27 Consult Discharge Plan - Plan Referrals: Storm Woo Jr, MD [Primary Care Provider] - (PT IS GOING BACK TO REHAB NO PCP APPOINTMENT NEEDED)
[2016-06-18] MEDS: *HR* Enoxaparin 100 MG/ML SYRINGE SQ SCH (20:42)
[2016-06-18] MEDS: Famotidine 20 MG TABLET PO SCH (20:43)
[2016-06-18] MEDS: Magnesium Oxide 400 MG TABLET PO SCH (20:43)
[2016-06-19] MEDS: Piperacillin/Tazobactam 3.375 GM in D5% in Water (Mini-Bag+) 100 ML IVPB SCH ×3 (01:05→16:00)
[2016-06-19] MEDS: 0.9 % Sodium Chloride 1,000 ML IVC SCH ×2 (01:30→12:20)
[2016-06-19 06:27] LABS: Basophils % 0.5 %; Eosinophils # 0.3 K/mcL (0.0-0.6); Eosinophils % 4.4 %; Hemoglobin 8.3 g/dL (11.5-15.4); Immature Granulocytes % 0.5 % (0-4); Lymphocytes # 0.2 K/mcL (0.6-4.6); Lymphocytes % 2.7 %; Mean Corpuscular HGB Conc 31.9 g/dL (31.6-35.5); Mean Corpuscular Hemoglobin 30.9 pg (28.0-33.3); Mean Corpuscular Volume 96.7 fL (83.0-100.0); Mean Platelet Volume 10.2 fL (9.4-12.4); Monocytes # 0.4 K/mcL (0.0-1.3); Monocytes % 4.7 %; Neutrophils # 6.5 K/mcL (1.6-8.9); Platelet Count 273 K/mcL (140-400); Red Blood Count 2.69 M/mcL (3.82-4.97); Red Cell Distribution Width 18.4 % (11.5-14.5); Segmented Neutrophils % 87.2 %
[2016-06-19 06:37] LABS: Magnesium 1.5 mg/dL (1.6-2.6); Phosphorous 1.9 mg/dL (2.3-4.7)
[2016-06-19 06:42] LABS: Albumin/Globulin Ratio 1.1 (1.1-2.2); Alkaline Phosphatase 64 Units/L (38-126); Aspartate Amino Transferase 17 Units/L (5-34); BUN/Creatinine Ratio 15 (6-26); Bilirubin,Total 0.4 mg/dL (0.2-1.2); Blood Urea Nitrogen 17 mg/dL (7-20); Calcium 8.4 mg/dL (8.6-10.8); Carbon Dioxide 18 mEq/L (19-29); Chloride 114 mEq/L (98-109); Glucose 93 mg/dL (70-99); Osmolality,Calculated 287 (280-300); Potassium 3.7 mEq/L (3.5-4.5); Sodium 138 mEq/L (136-145); Total Protein 4.2 g/dL (6.0-8.3); eGFR For African Americans 54 (> 60); eGFR For Non-African Americans 45 (> 60)
[2016-06-19 06:43] LABS: Alanine Aminotransferase < 6 Units/L (0-55); Albumin 2.2 g/dL (3.5-5.0)
[2016-06-19] MEDS: Multivit/Ca/Min/Fe/FA 1 TAB TABLET PO SCH (08:13)
[2016-06-19] MEDS: VIT C PO SCH (08:15)
[2016-06-19] MEDS: CHONDRO SU A PO SCH (08:15)
[2016-06-19] MEDS: Magnesium Oxide 400 MG TABLET PO SCH ×2 (08:15→19:59)
[2016-06-19] MEDS: GLUC SU PO SCH (08:15)
[2016-06-19] MEDS: [UNRECOGNIZED DRUG - OTHER] PO SCH (08:15)
[2016-06-19] MEDS: (Ginkgo Biloba [Ginkgo Biloba] 60 MG) PO SCH (08:15)
[2016-06-19] MEDS: *HR* OxyCODONE/APAP 5/325 TABLET PO PRN ×2 (09:46→15:09)
[2016-06-19] MEDS ORDERED: Magnesium Sulfate 2 GM in D5% in Water 100 ML IVPB ONE (11:26)
[2016-06-19] MEDS ORDERED: Potassium Phosphate 44 MEQ in 0.9 % Sodium Chloride 250 ML IVPB ONE (11:26)
--- NOTE | 2016-06-19 11:37 | Internal Med Progress Note ---
Date of Encounter: 06/19/16 Time of Encounter: 11:35 - Assessment and plan (1) Hypomagnesemia Current Visit: Yes Status: Acute Assessment and plan: Likely due to poor oral intake. Supplement with IV magnesium sulfate and oral magnesium oxide. Continue to monitor closely. (2) Hypokalemia Current Visit: Yes Status: Resolved (3) Hypotension Current Visit: Yes Status: Acute Assessment and plan: Uncertain etiology but likely related to malnutrition and hypoalbuminemia. Blood pressure noted to be improving. Continue IV hydration. Nutrition consult noted. Continue empiric IV antibiotics for necrotic pelvic lymph nodes/ phlegmon. No other source of infection currently noted. Blood and urine cultures remain negative. Hypotension could also be due to underlying cancer and radiation. Qualifiers: Hypotension type: unspecified hypotension type Qualified Code(s): I95.9 - Hypotension, unspecified (4) Acute renal failure Current Visit: Yes Status: Acute Assessment and plan: Could be related to underlying lymphoma and chemotherapy. Serum creatinine improving. Continue to monitor serum creatinine and continue IV hydration. Monitor urine output closely, on Bullock catheterization due to urinary retention. CT abdomen/pelvis shows mild left-sided hydronephrosis due to ureteral compression by the tumor mass. Qualifiers: Acute renal failure type: unspecified Qualified Code(s): N17.9 - Acute kidney failure, unspecified (5) Atrial fibrillation Current Visit: Yes Status: Chronic Assessment and plan: Continue therapeutic dose of subcutaneous Lovenox given her underlying malignancy. Beta juarez is currently held due to hypotension. Qualifiers: Atrial fibrillation type: paroxysmal Qualified Code(s): I48.0 - Paroxysmal atrial fibrillation (6) DLBCL (diffuse large B cell lymphoma) Current Visit: Yes Status: Chronic Assessment and plan: Has been following with oncology at [facility] and also with [facility]; she received 4 days of palliative radiation. Monitor for tumor lysis syndrome. patient is currently a candidate for palliative radiation and not receiving any active treatment for her colon cancer and no further chemotherapy for lymphoma. Prognosis is grave at this time. Patient and family not ready to consider the option of hospice at this time. Continue to follow. Pain control and supportive care. High risk for complications, poor prognosis. (7) Colon cancer Current Visit: Yes Status: Chronic Qualifiers: Colon location: sigmoid Qualified Code(s): C18.7 - Malignant neoplasm of sigmoid colon (8) Hypercalcemia of malignancy Current Visit: Yes Status: Chronic (9) Hypoalbuminemia due to protein-calorie malnutrition Current Visit: Yes Status: Chronic - Subjective Interval history: Feeling better slowly. Still has generalized weakness but tolerates diet better , noted to be more alert. Trying to eat more. Improved abdominal pain but still has left leg pain and swelling. Reports that her family is looking into other options for placement that are closer to her radiation therapy. - Constitutional Vitals: Temp Pulse Resp BP Pulse Ox 98.7 F 88 16 95/53 96 06/19/16 08:00 06/19/16 08:00 06/19/16 08:00 06/19/16 08:00 06/19/16 08:00 General appearance: Present: A&O X 3, answers questions appropriately - Respiratory Respiratory exam: Present: CTAB. Absent: accessory muscle use, rales, rhonchi, wheezes - Cardiovascular Cardiovascular exam: Present: RRR, +S1, +S2. Absent: diastolic murmur, gallop, rubs, systolic murmur - Extremities Exam Extremities exam: Present: pedal edema (4+ pitting pedal edema, left more than right), warm, radial pulses palpable and symetrical. Absent: calf tenderness, cyanotic Internal Medicine: Result - Labs CBC & Chem 7: 06/19/16 06:15 06/19/16 06:15 Labs: Short CBC 06/19/16 Range/Units 06:15 WBC 7.5 (4.3-11.1) K/mcL Hgb 8.3 L (11.5-15.4) g/dL Hct 26.0 L (35.3-44.9) % Plt Count 273 (140-400) K/mcL Neutrophils # 6.5 (1.6-8.9) K/mcL BMP 06/19/16 06:15 Sodium 138 Potassium 3.7 Chloride 114 H Carbon Dioxide 18 L BUN 17 Creatinine 1.16 H Glucose 93 Calcium 8.4 L Liver Function 06/19/16 Range/Units 06:15 Total Bilirubin 0.4 (0.2-1.2) mg/dL AST 17 (5-34) Units/L ALT < 6 (0-55) Units/L Alkaline Phosphatase 64 (38-126) Units/L Albumin 2.2 L D (3.5-5.0) g/dL - ABG Interpretation ABG results: PT/INR, D-dimer PT 10.7 Seconds (9.4-12.1) 06/15/16 14:27 Consult Discharge Plan - Plan Referrals: Storm Woo Jr, MD [Primary Care Provider] - (PT IS GOING BACK TO REHAB NO PCP APPOINTMENT NEEDED)
[2016-06-19] MEDS: Aspirin Enteric Coated 81 MG Tablet PO SCH (17:28)
[2016-06-19] MEDS: ASCORBIC ACID PO SCH (17:29)
[2016-06-19] MEDS: FERROUS FUMARATE PO SCH (17:29)
[2016-06-19] MEDS: Famotidine 20 MG TABLET PO SCH (19:58)
[2016-06-19] MEDS: *HR* Enoxaparin 100 MG/ML SYRINGE SQ SCH (19:59)
[2016-06-20] MEDS: Piperacillin/Tazobactam 3.375 GM in D5% in Water (Mini-Bag+) 100 ML IVPB SCH ×3 (01:36→16:35)
[2016-06-20] MEDS: *HR* OxyCODONE/APAP 5/325 TABLET PO PRN ×3 (01:39→21:18)
[2016-06-20] MEDS: 0.9 % Sodium Chloride 1,000 ML IVC SCH ×4 (04:20→19:11)
[2016-06-20 07:04] LABS: Basophils % 0.7 %; Eosinophils # 0.3 K/mcL (0.0-0.6); Eosinophils % 5.6 %; Hematocrit 26.9 % (35.3-44.9); Hemoglobin 8.2 g/dL (11.5-15.4); Immature Granulocytes % 1.1 % (0-4); Lymphocytes # 0.2 K/mcL (0.6-4.6); Lymphocytes % 3.5 %; Mean Corpuscular HGB Conc 30.5 g/dL (31.6-35.5); Mean Corpuscular Hemoglobin 29.7 pg (28.0-33.3); Mean Corpuscular Volume 97.5 fL (83.0-100.0); Mean Platelet Volume 9.4 fL (9.4-12.4); Monocytes # 0.4 K/mcL (0.0-1.3); Monocytes % 6.1 %; Neutrophils # 4.7 K/mcL (1.6-8.9); Platelet Count 275 K/mcL (140-400); Red Blood Count 2.76 M/mcL (3.82-4.97); Red Cell Distribution Width 18.3 % (11.5-14.5)
[2016-06-20 07:15] LABS: Magnesium 1.3 mg/dL (1.6-2.6); Phosphorous 2.2 mg/dL (2.3-4.7)
[2016-06-20 07:18] LABS: Alanine Aminotransferase < 6 Units/L (0-55); Albumin 1.8 g/dL (3.5-5.0); Albumin/Globulin Ratio 0.9 (1.1-2.2); Alkaline Phosphatase 58 Units/L (38-126); Aspartate Amino Transferase 13 Units/L (5-34); BUN/Creatinine Ratio 13 (6-26); Bilirubin,Total 0.2 mg/dL (0.2-1.2); Blood Urea Nitrogen 13 mg/dL (7-20); Calcium 7.7 mg/dL (8.6-10.8); Carbon Dioxide 20 mEq/L (19-29); Chloride 114 mEq/L (98-109); Globulin 1.9 g/dL (2.4-3.5); Glucose 88 mg/dL (70-99); Osmolality,Calculated 288 (280-300); Potassium 3.5 mEq/L (3.5-4.5); Sodium 139 mEq/L (136-145); Total Protein 3.7 g/dL (6.0-8.3); eGFR For African Americans > 60 (> 60); eGFR For Non-African Americans 53 (> 60)
[2016-06-20] MEDS: Magnesium Oxide 400 MG TABLET PO SCH ×3 (09:08→20:05)
[2016-06-20] MEDS: Multivit/Ca/Min/Fe/FA 1 TAB TABLET PO SCH (09:08)
[2016-06-20] MEDS: [UNRECOGNIZED DRUG - OTHER] PO SCH (09:19)
[2016-06-20] MEDS: VIT C PO SCH (09:19)
[2016-06-20] MEDS: GLUC SU PO SCH (09:19)
[2016-06-20] MEDS: CHONDRO SU A PO SCH (09:19)
[2016-06-20] MEDS: (Ginkgo Biloba [Ginkgo Biloba] 60 MG) PO SCH (09:19)
[2016-06-20] MEDS ORDERED: Magnesium Sulfate 2 GM in D5% in Water 100 ML IVPB ONE (12:23)
[2016-06-20] MEDS ORDERED: Potassium Phosphate 44 MEQ in 0.9 % Sodium Chloride 250 ML IVPB ONE (12:23)
--- NOTE | 2016-06-20 12:35 | Internal Med Progress Note ---
Date of Encounter: 06/20/16 Time of Encounter: 12:32 - Assessment and plan (1) Hypomagnesemia Current Visit: Yes Status: Acute Assessment and plan: Likely due to poor oral intake. Supplement with IV magnesium sulfate and increase dose of oral magnesium oxide. Supplement with oral Neutra-Phos and IV potassium phosphate. Continue to monitor closely. (2) Hypokalemia Current Visit: Yes Status: Resolved (3) Hypotension Current Visit: Yes Status: Acute Assessment and plan: Uncertain etiology but likely related to malnutrition and hypoalbuminemia. Blood pressure continues to be improving. Continue IV hydration. Nutrition consult noted, started on protein supplements. Continue empiric IV antibiotics for necrotic pelvic lymph nodes/phlegmon. No other source of infection currently noted. Blood and urine cultures remain negative. Hypotension could also be due to underlying cancer and radiation. Awaiting rehab placement. Qualifiers: Hypotension type: unspecified hypotension type Qualified Code(s): I95.9 - Hypotension, unspecified (4) Acute renal failure Current Visit: Yes Status: Acute Assessment and plan: Could be related to underlying lymphoma and chemotherapy. Serum creatinine continues to improve. Continue to monitor serum creatinine and continue IV hydration. Monitor urine output closely, on Bullock catheterization due to urinary retention. CT abdomen/pelvis shows mild left-sided hydronephrosis due to ureteral compression by the tumor mass. Qualifiers: Acute renal failure type: unspecified Qualified Code(s): N17.9 - Acute kidney failure, unspecified (5) Atrial fibrillation Current Visit: Yes Status: Chronic Assessment and plan: Continue therapeutic dose of subcutaneous Lovenox given her underlying malignancy. Beta juarez is currently held due to hypotension. Qualifiers: Atrial fibrillation type: paroxysmal Qualified Code(s): I48.0 - Paroxysmal atrial fibrillation (6) DLBCL (diffuse large B cell lymphoma) Current Visit: Yes Status: Chronic Assessment and plan: Has been following with oncology at [facility] and also with [facility]; she received 4 days of palliative radiation. Monitor for tumor lysis syndrome. patient is currently a candidate for palliative radiation and not receiving any active treatment for her colon cancer and no further chemotherapy for lymphoma. Prognosis is grave at this time. Patient and family not ready to consider the option of hospice at this time. Continue to follow. Pain control and supportive care. High risk for complications, poor prognosis. (7) Colon cancer Current Visit: Yes Status: Chronic Qualifiers: Colon location: sigmoid Qualified Code(s): C18.7 - Malignant neoplasm of sigmoid colon (8) Hypercalcemia of malignancy Current Visit: Yes Status: Chronic (9) Hypoalbuminemia due to protein-calorie malnutrition Current Visit: Yes Status: Chronic - Subjective Interval history: Appears in better spirits today. Feels better except some generalized weakness. No abdominal pain, nausea or vomiting. Awaiting placement; plan of care d/w son at bedside, interested in [facility], to d/w cylinder worker tomorrow; - Constitutional Vitals: Temp Pulse Resp BP Pulse Ox 98.2 F 96 18 102/67 96 06/20/16 11:58 06/20/16 11:58 06/20/16 11:58 06/20/16 11:58 06/20/16 11:58 General appearance: Present: A&O X 3, answers questions appropriately - Respiratory Respiratory exam: Present: CTAB. Absent: accessory muscle use, rales, rhonchi, wheezes - Cardiovascular Cardiovascular exam: Present: irregular rhythm, +S1, +S2. Absent: diastolic murmur, gallop, rubs, systolic murmur - GI/Abdominal GI/Abdominal exam: Present: normal bowel sounds, soft (colostomy in place, with stool output), no peritoneal signs. Absent: distended, tenderness - Extremities Exam Extremities exam: Present: full ROM, pedal edema (4+ pitting pedal edema, left> right), warm, radial pulses palpable and symetrical. Absent: calf tenderness, cyanotic Internal Medicine: Result - Labs CBC & Chem 7: 06/20/16 06:54 06/20/16 06:54 Labs: Short CBC 06/20/16 Range/Units 06:54 WBC 5.7 (4.3-11.1) K/mcL Hgb 8.2 L (11.5-15.4) g/dL Hct 26.9 L (35.3-44.9) % Plt Count 275 (140-400) K/mcL Neutrophils # 4.7 (1.6-8.9) K/mcL BMP 06/20/16 06:54 Sodium 139 Potassium 3.5 Chloride 114 H Carbon Dioxide 20 BUN 13 Creatinine 0.99 Glucose 88 Calcium 7.7 L Liver Function 06/20/16 Range/Units 06:54 Total Bilirubin 0.2 (0.2-1.2) mg/dL AST 13 (5-34) Units/L ALT < 6 (0-55) Units/L Alkaline Phosphatase 58 (38-126) Units/L Albumin 1.8 L (3.5-5.0) g/dL - ABG Interpretation ABG results: PT/INR, D-dimer PT 10.7 Seconds (9.4-12.1) 06/15/16 14:27 Consult Discharge Plan - Plan Referrals: Storm Woo Jr, MD [Primary Care Provider] - (PT IS GOING BACK TO REHAB NO PCP APPOINTMENT NEEDED)
[2016-06-20] MEDS: Aspirin Enteric Coated 81 MG Tablet PO SCH (16:34)
[2016-06-20] MEDS: FERROUS FUMARATE PO SCH (16:47)
[2016-06-20] MEDS: ASCORBIC ACID PO SCH (16:47)
[2016-06-20] MEDS: *HR* Enoxaparin 100 MG/ML SYRINGE SQ SCH (20:03)
[2016-06-20] MEDS: Famotidine 20 MG TABLET PO SCH (20:05)
[2016-06-21] MEDS: Piperacillin/Tazobactam 3.375 GM in D5% in Water (Mini-Bag+) 100 ML IVPB SCH ×3 (01:33→18:23)
[2016-06-21 03:35] LABS: Basophils # 0.1 K/mcL (0.0-0.2); Eosinophils # 0.3 K/mcL (0.0-0.6); Hematocrit 25.7 % (35.3-44.9); Hemoglobin 8.2 g/dL (11.5-15.4); Immature Granulocytes % 1.7 % (0-4); Lymphocytes # 0.2 K/mcL (0.6-4.6); Lymphocytes % 4.6 %; Mean Corpuscular HGB Conc 31.9 g/dL (31.6-35.5); Mean Corpuscular Hemoglobin 30.9 pg (28.0-33.3); Mean Platelet Volume 10.1 fL (9.4-12.4); Monocytes # 0.3 K/mcL (0.0-1.3); Monocytes % 6.4 %; Neutrophils # 4.2 K/mcL (1.6-8.9); Platelet Count 294 K/mcL (140-400); Red Blood Count 2.65 M/mcL (3.82-4.97); Red Cell Distribution Width 18.3 % (11.5-14.5); Segmented Neutrophils % 81.3 %
[2016-06-21 03:45] LABS: Magnesium 1.3 mg/dL (1.6-2.6); Phosphorous 2.8 mg/dL (2.3-4.7)
[2016-06-21 03:49] LABS: Alanine Aminotransferase 6 Units/L (0-55); Albumin/Globulin Ratio 0.9 (1.1-2.2); Alkaline Phosphatase 57 Units/L (38-126); Aspartate Amino Transferase 13 Units/L (5-34); BUN/Creatinine Ratio 13 (6-26); Bilirubin,Total 0.2 mg/dL (0.2-1.2); Blood Urea Nitrogen 11 mg/dL (7-20); Calcium 7.5 mg/dL (8.6-10.8); Carbon Dioxide 18 mEq/L (19-29); Chloride 115 mEq/L (98-109); Glucose 82 mg/dL (70-99); Osmolality,Calculated 288 (280-300); Potassium 3.6 mEq/L (3.5-4.5); Sodium 140 mEq/L (136-145); Total Protein 3.7 g/dL (6.0-8.3); eGFR For African Americans > 60 (> 60); eGFR For Non-African Americans > 60 (> 60)
[2016-06-21 03:50] LABS: Albumin 1.7 g/dL (3.5-5.0)
[2016-06-21] MEDS: *HR* OxyCODONE/APAP 5/325 TABLET PO PRN ×2 (05:06→14:11)
[2016-06-21] MEDS: 0.9 % Sodium Chloride 1,000 ML IVC SCH (08:37)
[2016-06-21] MEDS: Multivit/Ca/Min/Fe/FA 1 TAB TABLET PO SCH (08:37)
[2016-06-21] MEDS: Magnesium Oxide 400 MG TABLET PO SCH (08:38)
[2016-06-21] MEDS: (Ginkgo Biloba [Ginkgo Biloba] 60 MG) PO SCH (08:52)
[2016-06-21] MEDS: [UNRECOGNIZED DRUG - OTHER] PO SCH (08:53)
[2016-06-21] MEDS: GLUC SU PO SCH (08:53)
[2016-06-21] MEDS: CHONDRO SU A PO SCH (08:53)
[2016-06-21] MEDS: VIT C PO SCH (08:53)
--- NOTE | 2016-06-21 10:34 | Palliative Progress Note ---
<Francisco JavierGokul jeff - Last Filed: 06/21/16 10:31> Date of Encounter: 06/21/16 Time of Encounter: 10:31 - Assessment and plan (1) Pain Current Visit: Yes Status: Acute Assessment and plan: Under good control this time. Continue to monitor. (2) Goals of care, counseling/discussion Current Visit: Yes Status: Acute Assessment and plan: Patient remains a DNR CCA, patient wished to be a DNI as well so this order has been placed. Goals of care for the patient to return to [facility] for further rehabilitation and ultimately to home when safe to do so, however [facility] but does not feel the patient will be a good candidate to return. We are exploring other options including ECF.. Appears to be making improvements with palliative radiation. Given the patient's underlying medical condition and she will likely be a candidate for hospice but remains resistant to this at this time. CODE STATUS was reaffirmed. We will continue to follow along and reassess the patient's goals of care and offer services as she wishes. (3) Colon cancer Current Visit: Yes Status: Chronic Assessment and plan: Currently getting radiation treatments that are palliative in nature per oncology. Qualifiers: Colon location: sigmoid Qualified Code(s): C18.7 - Malignant neoplasm of sigmoid colon (4) Lymphedema of left lower extremity Current Visit: No Status: Acute Assessment and plan: Improved. 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 Patient is currently receiving radiation treatments by Dr. Allen. Today is treatment #5 scheduled at 11:30 this morning. Plan is for a total of 10 treatments as the patient tolerates. - Time Spent With Patient Total time spent is greater than 50% in coordination of care (as documented) at patient's floor/unit and/or counseling patient: - Subjective Interval history: Patient seen and examined bedside. Patient has no complaints today, she states she feels much improved since admission, and had no issues over the weekend. She states her swelling continues to improve. She denies dyspnea, nausea, vomiting. She has rare pain in her left leg that is well controlled by pain medication. Patient is drinking adequately and continues to improve her food intake. - Constitutional Vitals: Abnormal lab results RBC 2.65 M/mcL (3.82-4.97) L 06/21/16 03:15 Hgb 8.2 g/dL (11.5-15.4) L 06/21/16 03:15 Hct 25.7 % (35.3-44.9) L 06/21/16 03:15 RDW 18.3 % (11.5-14.5) H 06/21/16 03:15 Lymphocytes # 0.2 K/mcL (0.6-4.6) L 06/21/16 03:15 Anisocytosis 1+ (Not Present) A 06/18/16 03:50 Chloride 115 mEq/L (98-109) H 06/21/16 03:15 Carbon Dioxide 18 mEq/L (19-29) L 06/21/16 03:15 Calcium 7.5 mg/dL (8.6-10.8) L 06/21/16 03:15 Magnesium 1.3 mg/dL (1.6-2.6) L 06/21/16 03:15 Serum Total Protein 3.7 g/dL (6.0-8.3) L 06/21/16 03:15 Albumin 1.7 g/dL (3.5-5.0) L 06/21/16 03:15 Globulin 2.0 g/dL (2.4-3.5) L 06/21/16 03:15 Albumin/Globulin Ratio 0.9 (1.1-2.2) L 06/21/16 03:15 Urine Clarity Turbid (Clear) A 06/15/16 15:10 Urine Protein 30 mg/dL (Neg-Trace) H 06/15/16 15:10 Urine Blood Moderate (Negative) H 06/15/16 15:10 Urine Nitrite Positive (Negative) A 06/15/16 15:10 Ur Leukocyte Esterase Large (Negative) H 06/15/16 15:10 Urine Microscopic RBC 15-30 per hpf (0-3) H 06/15/16 15:10 Urine Microscopic WBC TNTC per hpf (0-3) H 06/15/16 15:10 Ur Squamous Epith Cells Many per lpf (None-Few) H 06/15/16 15:10 Urine Yeast Few per hpf (None Seen) H 06/15/16 15:10 Ur Culture Indicated? YES (NO) A 06/15/16 15:10 - ENT ENT exam: Present: mucous membranes moist - Respiratory Respiratory exam: Present: CTAB. Absent: rales, rhonchi, wheezes - Cardiovascular Cardiovascular exam: Present: tachycardia. Absent: gallop, rubs, systolic murmur - GI/Abdominal GI/Abdominal exam: Present: normal bowel sounds, soft. Absent: distended, tenderness - Extremities Exam Extremities exam: Present: pedal edema Additional comments: 3+ pitting edema in the left lower extremity, 1+ pitting edema in the right lower extremity. - Neurological Exam Neurological exam: Present: alert, CN II-XII intact, oriented X3, no focal deficits Palliative Quality Palliative Quality: Screen for Code Status: Yes, Screen for Goals of Care: Yes, Screen for Pain: Yes, If Pain Regimen Started, Initiate Bowel Regimen: Yes, Screen for Nausea/Vomitting: Yes Code Status: 06/15/16 16:32 Resuscitation Status: Active [RES] Routine Comment: Resuscitation Status: [id number] - Labs CBC & Chem 7: 06/21/16 03:15 06/21/16 03:15 Labs: Laboratory Results - last 24 hr 06/21/16 06/21/16 06/21/16 03:15 03:15 03:15 WBC 5.2 RBC 2.65 L Hgb 8.2 L Hct 25.7 L MCV 97.0 MCH 30.9 MCHC 31.9 RDW 18.3 H Plt Count 294 MPV 10.1 Immature Gran % 1.7 Seg Neutrophils % 81.3 Lymphocytes % 4.6 Monocytes % 6.4 Eosinophils % 5.0 Basophils % 1.0 Neutrophils # 4.2 Lymphocytes # 0.2 L Monocytes # 0.3 Eosinophils # 0.3 Basophils # 0.1 Sodium 140 Potassium 3.6 Chloride 115 H Carbon Dioxide 18 L BUN 11 Creatinine 0.85 Est GFR ( Amer) > 60 Est GFR (Non-Af Amer) > 60 BUN/Creatinine Ratio 13 Glucose 82 Calculated Osmolality 288 Calcium 7.5 L Phosphorus 2.8 Magnesium 1.3 L Total Bilirubin 0.2 AST 13 ALT 6 Alkaline Phosphatase 57 Serum Total Protein 3.7 L Albumin 1.7 L Globulin 2.0 L Albumin/Globulin Ratio 0.9 L - ABG Interpretation ABG results: PT/INR, D-dimer PT 10.7 Seconds (9.4-12.1) 06/15/16 14:27 Consult Discharge Plan - Plan Additional Instructions: F/up for Radiation Oncology treatments daily for 5 more sessions F/up with [facility] as scheduled Referrals: Storm Woo Jr, MD [Primary Care Provider] - (PT IS GOING BACK TO REHAB NO PCP APPOINTMENT NEEDED) Prescriptions: Amoxicillin/Clavulanate [Augmentin] 500 mg PO BIDWM #16 tablet Enoxaparin [Lovenox] 90 mg SQ Q24H #10 syringe Magnesium Oxide [Mag-Ox] 800 mg PO TID #60 tablet Midodrine [ProAmatine] 5 mg PO 0800,1200,1700 #30 tablet Phos-NaK [Neutra-Phos] 1 each PO DAILY #10 powd.pack <Madan Christianson - Last Filed: 06/21/16 14:26> - Assessment and plan (1) Pain Current Visit: Yes Status: Acute (2) Goals of care, counseling/discussion Current Visit: Yes Status: Acute (3) Colon cancer Current Visit: Yes Status: Chronic Qualifiers: Colon location: sigmoid Qualified Code(s): C18.7 - Malignant neoplasm of sigmoid colon (4) Lymphedema of left lower extremity Current Visit: No Status: Acute - Time Spent With Patient Total time spent is greater than 50% in coordination of care (as documented) at patient's floor/unit and/or counseling patient: - Constitutional Vitals: Abnormal lab results RBC 2.65 M/mcL (3.82-4.97) L 06/21/16 03:15 Hgb 8.2 g/dL (11.5-15.4) L 06/21/16 03:15 Hct 25.7 % (35.3-44.9) L 06/21/16 03:15 RDW 18.3 % (11.5-14.5) H 06/21/16 03:15 Lymphocytes # 0.2 K/mcL (0.6-4.6) L 06/21/16 03:15 Anisocytosis 1+ (Not Present) A 06/18/16 03:50 Chloride 115 mEq/L (98-109) H 06/21/16 03:15 Carbon Dioxide 18 mEq/L (19-29) L 06/21/16 03:15 Calcium 7.5 mg/dL (8.6-10.8) L 06/21/16 03:15 Magnesium 1.3 mg/dL (1.6-2.6) L 06/21/16 03:15 Serum Total Protein 3.7 g/dL (6.0-8.3) L 06/21/16 03:15 Albumin 1.7 g/dL (3.5-5.0) L 06/21/16 03:15 Globulin 2.0 g/dL (2.4-3.5) L 06/21/16 03:15 Albumin/Globulin Ratio 0.9 (1.1-2.2) L 06/21/16 03:15 Urine Clarity Turbid (Clear) A 06/15/16 15:10 Urine Protein 30 mg/dL (Neg-Trace) H 06/15/16 15:10 Urine Blood Moderate (Negative) H 06/15/16 15:10 Urine Nitrite Positive (Negative) A 06/15/16 15:10 Ur Leukocyte Esterase Large (Negative) H 06/15/16 15:10 Urine Microscopic RBC 15-30 per hpf (0-3) H 06/15/16 15:10 Urine Microscopic WBC TNTC per hpf (0-3) H 06/15/16 15:10 Ur Squamous Epith Cells Many per lpf (None-Few) H 06/15/16 15:10 Urine Yeast Few per hpf (None Seen) H 06/15/16 15:10 Ur Culture Indicated? YES (NO) A 06/15/16 15:10 - Attending Attestation I examined this patient and my medical decision-making was reviewed with the HANDS ASSEMBLER/PA/Advanced Practice Nurse/Resident Physician. I agree with the documented findings, disposition and treatment plan as described except to the extent set forth below. Palliative Quality Code Status: 06/15/16 16:32 Resuscitation Status: Active [RES] Routine Comment: Resuscitation Status: [id number] - Labs CBC & Chem 7: 06/21/16 03:15 06/21/16 03:15 Labs: Laboratory Results - last 24 hr 06/21/16 06/21/16 06/21/16 03:15 03:15 03:15 WBC 5.2 RBC 2.65 L Hgb 8.2 L Hct 25.7 L MCV 97.0 MCH 30.9 MCHC 31.9 RDW 18.3 H Plt Count 294 MPV 10.1 Immature Gran % 1.7 Seg Neutrophils % 81.3 Lymphocytes % 4.6 Monocytes % 6.4 Eosinophils % 5.0 Basophils % 1.0 Neutrophils # 4.2 Lymphocytes # 0.2 L Monocytes # 0.3 Eosinophils # 0.3 Basophils # 0.1 Sodium 140 Potassium 3.6 Chloride 115 H Carbon Dioxide 18 L BUN 11 Creatinine 0.85 Est GFR ( Amer) > 60 Est GFR (Non-Af Amer) > 60 BUN/Creatinine Ratio 13 Glucose 82 Calculated Osmolality 288 Calcium 7.5 L Phosphorus 2.8 Magnesium 1.3 L Total Bilirubin 0.2 AST 13 ALT 6 Alkaline Phosphatase 57 Serum Total Protein 3.7 L Albumin 1.7 L Globulin 2.0 L Albumin/Globulin Ratio 0.9 L - ABG Interpretation ABG results: PT/INR, D-dimer PT 10.7 Seconds (9.4-12.1) 06/15/16 14:27
[2016-06-21] MEDS ORDERED: Magnesium Sulfate 2 GM in D5% in Water 100 ML IVPB ONE (13:31)
[2016-06-21] MEDS ORDERED: Magnesium Oxide 400 MG TABLET PO SCH (13:31)
--- NOTE | 2016-06-21 13:52 | Discharge Summary ---
Date of Encounter: 06/21/16 Time of Encounter: 13:47 - Discharge Diagnosis (1) Hypomagnesemia Priority: Primary Status: Acute (2) Hypokalemia Priority: Primary Status: Resolved (3) Hypotension Priority: Primary Status: Resolved Qualifiers: Hypotension type: unspecified hypotension type Qualified Code(s): I95.9 - Hypotension, unspecified (4) Acute renal failure Priority: Primary Status: Acute Qualifiers: Acute renal failure type: unspecified Qualified Code(s): N17.9 - Acute kidney failure, unspecified (5) Atrial fibrillation Priority: Secondary Status: Chronic Qualifiers: Atrial fibrillation type: paroxysmal Qualified Code(s): I48.0 - Paroxysmal atrial fibrillation (6) DLBCL (diffuse large B cell lymphoma) Priority: Secondary Status: Chronic (7) Colon cancer Priority: Secondary Status: Chronic Qualifiers: Colon location: sigmoid Qualified Code(s): C18.7 - Malignant neoplasm of sigmoid colon (8) Hypercalcemia of malignancy Priority: Primary Status: Resolved (9) Hypoalbuminemia due to protein-calorie malnutrition Priority: Secondary Status: Chronic - Discharge Medications Prescriptions: Amoxicillin/Clavulanate [Augmentin] 500 mg PO BIDWM #16 tablet Enoxaparin [Lovenox] 90 mg SQ Q24H #10 syringe Magnesium Oxide [Mag-Ox] 800 mg PO TID #60 tablet Midodrine [ProAmatine] 5 mg PO 0800,1200,1700 #30 tablet Phos-NaK [Neutra-Phos] 1 each PO DAILY #10 powd.pack Home Medications: Aspirin Enteric Coated [Aspirin EC] 162 mg PO QPM #0 11/26/14 [History] Atorvastatin [Lipitor] 10 mg PO HS #0 11/26/14 [History] Ferrous Fumarate/Ascorbic Acid [Delvis-Sequels 65-25 mg Caplet] 0.5 each PO QPM # 0 11/26/14 [History] Ginkgo Biloba 60 mg PO QAM #0 11/26/14 [History] Gluc Fitzgerald/Chondro Fitzgerald A/Vit C/Mn [Glucosamine Chondroitin Tab] 2 each PO QAM #0 [History] Inulin/Chromium Picolinate [Fiber Gummies] 2 each PO BID #0 11/26/14 [History] Multivit-Min/FA/Lycopen/Lutein [Centrum Silver Tablet] 1 each PO DAILY #0 11/26 [History] Nitroglycerin [Nitrostat] 0.4 mg SL Q5M PRN #0 11/26/14 [History] Vitamin B Complex 1 each PO QAM #0 11/26/14 [History] Prochlorperazine Maleate [Compazine] 10 mg PO Q6HR PRN #30 tablet 12/19/14 [Rx] Ranitidine HCl [Zantac] 150 mg PO Q12H #60 tablet 01/16/15 [Rx] Capecitabine [Xeloda] 1 tab PO BID #60 tablet 06/08/16 [Rx] Docusate Sodium [Colace] 100 mg PO BID #60 capsule 06/08/16 [Rx] Allopurinol [Zyloprim 300 MG] 300 mg PO DAILY #20 tablet 06/10/16 [Rx] Metoprolol [Lopressor] 25 mg PO BID 06/15/16 [History] Naproxen Sodium [Aleve] 220 mg PO Q12H PRN 06/15/16 [History] Ondansetron ODT [Zofran ODT] 4 mg SL Q4HR PRN 06/15/16 [History] Amoxicillin/Clavulanate [Augmentin] 500 mg PO BIDWM #16 tablet 06/21/16 [Rx] Enoxaparin [Lovenox] 90 mg SQ Q24H #10 syringe 06/21/16 [Rx] Magnesium Oxide [Mag-Ox] 800 mg PO TID #60 tablet 06/21/16 [Rx] Midodrine [ProAmatine] 5 mg PO 0800,1200,1700 #30 tablet 06/21/16 [Rx] OxyCODONE/APAP 5/325 [Percocet 5/325 MG] 1 each PO TID PRN #20 tablet 06/21/16 [ Rx] Phos-NaK [Neutra-Phos] 1 each PO DAILY #10 powd.pack 06/21/16 [Rx] Allergies/Adverse Reactions: Allergies estrogens, conjugated [From Premarin] Allergy (Verified 11/26/14 13:23) Swelling of Lip/Tongue/Throat Date of admission: 06/15/16 16:32 Primary care physician: Storm Woo Jr, MD Consults: 06/15/16 17:54 Consult to Nutrition [CONS] Routine Comment: Consulting Provider: NUTRITION Reason for Dietary Consult: MST Score Consult to Cattle Dealer [CONS] Routine Reason for SW Consult: potential d/c needs 06/17/16 10:30 Consult to Physical Therapy [CONS] Routine Comment: Evaluate, develop and implement POC OT [Consult to Occupational Therapy] [CONS] Routine Comment: Evaluate, develop and implement POC Discharging clinician: Sari David Anticipated date of discharge: 06/21/16 - Patient Status Disposition: Transfer SNF Condition: Fair Functional capacity at discharge: uses cane/walker Overall status at discharge: patient is progressing back to baseline - Discharge Instructions Follow Up With: Storm Woo Jr, MD [Primary Care Provider] - (PT IS GOING BACK TO REHAB NO PCP APPOINTMENT NEEDED) Additional Instructions: F/up for Radiation Oncology treatments daily for 5 more sessions F/up with [facility] as scheduled - Diet and Activity Activity: as per physical therapy Diet: low fat, low cholesterol, low salt diet Hospital course: Ms. Muller is a 85 year old female wit the above medical problems, admitted with generalized weakness and hypotension and leukocytosis. She has been an inpatient at [facility] where she had ongoing hypotension and it was planned to start her on palliative radiation for NHL. Patient has been following with Oncology both at [facility] and [facility], and is noted to have apoor prognosis and only palliative radiation can be offered at this time. She also has significant lower extremity edema, left much worse than right, due to lymphedema and compression from tumor/lymph nodes in pelvic area. Palliative care team was involved and code status changed to DNR-CCA/DNI per patient and family. Antihypertensives were held and She was started on IV hydration and broad spectrum IV antibiotics for possible septic shock, however no source of infection has been identified. Blood and urine cultures remained negative. Chest XRay showed no Pneumonia. CT abdomen/pelvis showed improving necrotic lymph nodes and possible phlegmon/mass in pelvic area, which has been ongoing since Apr 2016. She was continued on IV Zosyn. No other cause for hypotension was identified except significant hypoalbuminemia and malnutrition from malignancy. Nutrition consult was obtained , started on protein supplements. She was also started on IV Albumin for 4 doses along with Midodrine. BP gradually improved. She was also noted to have MARQUISE likely due to hypotension and radiation, which improved during this stay. She had multiple electrolyte abnormalities- low k, Mg , P which are being supplemented. She was continued on subcutaneous Lovenox for recently diagnosed a.fib, given her underlying malignancy and her Hb remained stable. Patient received 5 days of radiation and has 5 more days left. She is medically stable for [facility] as she is severely deconditioned due to underlying medical conditions and radiotherapy. - Time Spent with Patient Total time spent providing and/or coordinating discharge services: Greater than 30 minutes (50 min) - Constitutional Vitals: Temp Pulse Resp BP Pulse Ox 98.0 F 112 18 101/70 95 06/21/16 06:49 06/21/16 06:49 06/21/16 06:49 06/21/16 06:49 06/21/16 06:49 General appearance: Present: A&O X 3 (lethargic and weak today from radiation), answers questions appropriately - Cardiovascular Cardiovascular exam: Present: RRR, +S1, +S2. Absent: diastolic murmur, gallop, rubs, systolic murmur - Extremities Exam Extremities exam: Present: pedal edema (significant pitting pedal edema B/L, left much more than right), warm, radial pulses palpable and symetrical. Absent : calf tenderness, cyanotic
--- NOTE | 2016-06-21 13:56 | Physician Discharge Referral ---
ExtendedCare Referral Info Transfer To: [facility] Provider in Charge: Sari David Provider in Charge after Transfer: PCP Institutional Level of Care: Skilled - Diagnosis (1) Hypomagnesemia Priority: Primary Status: Acute (2) Hypokalemia Priority: Primary Status: Resolved (3) Hypotension Priority: Primary Status: Resolved (4) Acute renal failure Priority: Primary Status: Acute (5) Atrial fibrillation Priority: Secondary Status: Chronic (6) DLBCL (diffuse large B cell lymphoma) Priority: Secondary Status: Chronic (7) Colon cancer Priority: Secondary Status: Chronic (8) Hypercalcemia of malignancy Priority: Secondary Status: Resolved (9) Hypoalbuminemia due to protein-calorie malnutrition Priority: Secondary Status: Chronic Expected Duration of Placement: 3 weeks Prognosis: Poor Aware of Diagnosis: Patient, Family Aware of Prognosis: Patient, Family - Transfer Medications Prescriptions: Amoxicillin/Clavulanate [Augmentin] 500 mg PO BIDWM #16 tablet Enoxaparin [Lovenox] 90 mg SQ Q24H #10 syringe Magnesium Oxide [Mag-Ox] 800 mg PO TID #60 tablet Midodrine [ProAmatine] 5 mg PO 0800,1200,1700 #30 tablet Phos-NaK [Neutra-Phos] 1 each PO DAILY #10 powd.pack Home Medications: Aspirin Enteric Coated [Aspirin EC] 162 mg PO QPM #0 11/26/14 [History] Atorvastatin [Lipitor] 10 mg PO HS #0 11/26/14 [History] Ferrous Fumarate/Ascorbic Acid [Delvis-Sequels 65-25 mg Caplet] 0.5 each PO QPM # 0 11/26/14 [History] Ginkgo Biloba 60 mg PO QAM #0 11/26/14 [History] Gluc Fitzgerald/Chondro Fitzgerald A/Vit C/Mn [Glucosamine Chondroitin Tab] 2 each PO QAM #0 [History] Inulin/Chromium Picolinate [Fiber Gummies] 2 each PO BID #0 11/26/14 [History] Multivit-Min/FA/Lycopen/Lutein [Centrum Silver Tablet] 1 each PO DAILY #0 11/26 [History] Nitroglycerin [Nitrostat] 0.4 mg SL Q5M PRN #0 11/26/14 [History] Vitamin B Complex 1 each PO QAM #0 11/26/14 [History] Prochlorperazine Maleate [Compazine] 10 mg PO Q6HR PRN #30 tablet 12/19/14 [Rx] Ranitidine HCl [Zantac] 150 mg PO Q12H #60 tablet 01/16/15 [Rx] Capecitabine [Xeloda] 1 tab PO BID #60 tablet 06/08/16 [Rx] Docusate Sodium [Colace] 100 mg PO BID #60 capsule 06/08/16 [Rx] Allopurinol [Zyloprim 300 MG] 300 mg PO DAILY #20 tablet 06/10/16 [Rx] Metoprolol [Lopressor] 25 mg PO BID 06/15/16 [History] Naproxen Sodium [Aleve] 220 mg PO Q12H PRN 06/15/16 [History] Ondansetron ODT [Zofran ODT] 4 mg SL Q4HR PRN 06/15/16 [History] Amoxicillin/Clavulanate [Augmentin] 500 mg PO BIDWM #16 tablet 06/21/16 [Rx] Enoxaparin [Lovenox] 90 mg SQ Q24H #10 syringe 06/21/16 [Rx] Magnesium Oxide [Mag-Ox] 800 mg PO TID #60 tablet 06/21/16 [Rx] Midodrine [ProAmatine] 5 mg PO 0800,1200,1700 #30 tablet 06/21/16 [Rx] OxyCODONE/APAP 5/325 [Percocet 5/325 MG] 1 each PO TID PRN #20 tablet 06/21/16 [ Rx] Phos-NaK [Neutra-Phos] 1 each PO DAILY #10 powd.pack 06/21/16 [Rx] Allergies/Adverse Reactions: Allergies estrogens, conjugated [From Premarin] Allergy (Verified 11/26/14 13:23) Swelling of Lip/Tongue/Throat - Respiratory Orders Smoking Cessation: Smoking cessation has been advised. For more information, call the [employer] Quit Line at 5-858-SDSA-NOW. - Ancillary Orders May use pressure relief devices daily prn - Advance Directives Power of Cracking Machine Operator: Yes Code Status: DNR-Arrest/Don't Intubate - Mobility Orders Ambulate - Rehabiliation Orders Rehab Potential: Fair Rehab Orders: ROM Exercises, Evaluation for Physical Therapy, Evaluation for Occupational Therapy - Diet Orders Cardiac House Supplement per Dietary: Ensure Clear TID with meals CERTIFICATION: I certify that the transfer of the above named patient to an Extended Care Facility is necessary for the continuing treatment of the diagnosis listed. The above information is true and accurate reflection of patient's current condition. Confidential - Redisclosure prohibited without a patient's written consent.
[2016-06-21] MEDS ORDERED: *HR* Enoxaparin 100 MG/ML SYRINGE SQ SCH (18:00)
[2016-06-21] MEDS ORDERED: *HR* OxyCODONE Immed Rel 5 MG TABLET PO ONE (18:35)
[2016-06-21 19:21] VITALS: BP 92/57
== END 2016-06-21 19:05 | DRG 841 ==
LOC: EMEROO 13:15 → 2NNU 13:15 → SUATTDRO 16:32 → 2NNU 16:45
PROVIDERS: ADMIT Internal Medicine; ATTEND Internal Medicine